=== PATIENT | female | born 1960 | race Caucasian/White ===

== ENCOUNTER → 2016-10-09 17:10 | Outpatient (CLI) | payer MEDICARE | END | disposition home or self-care (01) | LOC: D.MAMMO 09-18 10:30 | DX: R92.8 Other abnormal and inconclusive findings on diagnostic imaging of breast (principal) ==

== ENCOUNTER 2017-01-20 20:47 | Inpatient (IN) | payer MEDICARE ==
[~2017-01-20] VITALS: Ht 170.2 cm; Wt 83.0 kg
[2017-01-20 22:00] LABS: ALBUMIN 2.6 g/dL (3.4-5.0); ALKALINE PHOSPHATASE 115 U/L (46-116); ALT (SGPT) 61 U/L (10-68); BILIRUBIN - TOTAL 0.25 mg/dL (0.2-1.3); CALC OSMOLALITY 249 mosm/kg (275-300); CALCIUM 7.6 mg/dL (8.5-10.1); CHLORIDE - SERUM 87 mmol/L (98-107); CREATININE - SERUM 0.7 mg/dL (0.6-1.3); GLUCOSE 97 mg/dL (74-106); POTASSIUM - SERUM 4.9 mmol/L (3.5-5.1); PROTEIN - SERUM 5.7 g/dL (6.4-8.2); SODIUM 126 mmol/L (136-145); TROPONIN-I 0.022 ng/mL (0.000-0.060); UREA NITROGEN 5 mg/dL (7-18); eGFR NON AFRICAN AMERICAN > 90 mL/min (90-120)
[2017-01-20 22:01] LABS: CARBON DIOXIDE 42.8 mmol/L (21.0-32.0)
[2017-01-20 22:17] LABS: BASOPHILS 0.2 % (0-2); EOSINOPHILS 1.9 % (0-7); HEMATOCRIT 47.8 % (36.0-48.0); HEMOGLOBIN 15.8 g/dL (12-16); IMMATURE GRANULOCYTES 0.4 % (0-5); MCH 30.6 pg (26.0-34.0); MCHC 33.1 g/dL (31.0-37.0); MCV 92.6 fL (80.0-100.0); MEAN PLATELET VOLUME 9.9 fL (7.4-10.4); MONOCYTES 9.2 % (2-11); NEUTROPHILS 68.3 % (40-80); PLATELET COUNT 303 10x3/uL (130-400); RBC 5.16 10x6/uL (4.00-5.40); WBC 9.4 10x3/uL (4.8-10.8)
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
--- NOTE | 2017-01-21 00:05 | NUR ---
PT REFUSING TO WEAR BIPAP AT THIS TIME
[2017-01-21] MEDS ORDERED: SINGULAIR10 MG PO (00:16)
[2017-01-21] MEDS ORDERED: VALIUM10 MG PO (00:17)
[2017-01-21] MEDS ORDERED: HYDROCODONE-APA1 TAB PO (00:17)
[2017-01-21] MEDS ORDERED: SPIRIVA18 MCG INH (00:17)
[2017-01-21] MEDS ORDERED: PEPCID AC20 MG PO (00:17)
[2017-01-21] MEDS ORDERED: BUTALB-APAP-CA1 EACH PO (00:18)
[2017-01-21] MEDS ORDERED: PROAIR HFA8.5 GM INH (00:20)
[2017-01-21] MEDS ORDERED: PROVENTIL HFA6.7 GM INH (00:21)
[2017-01-21] MEDS ORDERED: LASIX40 MG PO (00:21)
[2017-01-21 00:30] VITALS: BP 116/64; BMI 29.6
--- NOTE | 2017-01-21 01:04 | NUR ---
CALL LIGHT IN REACH, WILL CONTINUE WITH PLAN OF CARE.
--- NOTE | 2017-01-21 01:36 | NUR ---
MORPHINE 2 MG GIVEN FOR C/O PAIN TO LOWER EXTREMITIES, RATES PAIN AT AN 8 ON PAIN SCALE.
[2017-01-21 04:00] VITALS: BP 123/79
--- NOTE | 2017-01-21 04:00 | NUR ---
URINE SPECIMINE COLLECTED AND TAKEN TO LAB.
[2017-01-21 04:07] LABS: APPEARANCE CLEAR (CLEAR); COLOR YELLOW (YELLOW)
[2017-01-21 04:08] LABS: BILIRUBIN NEGATIVE (NEGATIVE); GLUCOSE NEGATIVE (NEGATIVE); KETONE NEGATIVE (NEGATIVE); LEUKOCYTE ESTERASE NEGATIVE (NEGATIVE); NITRITE NEGATIVE (NEGATIVE); PROTEIN TRACE mg/dL (NEGATIVE); SPECIFIC GRAVITY 1.005 (1.005-1.020); UROBILINOGEN NORMAL (NORMAL)
--- NOTE | 2017-01-21 05:24 | NUR ---
morphine 2 mg given for c/o pain to legs.
--- NOTE | 2017-01-21 07:29 | NUR ---
OFF FLOOR OUTSIDE SMOKING, PT HAS TAKEN HER TELEMETRY OFF. WILL DISCUSS WITH PT WHEN SHE COMES BACK ON THE FLOOR IN REGARDS TO LETTING SOMEONE KNOW WHEN SHE LEAVES THE FLOOR AND IMPORTANCE OF NOT TAKING TELEMETRY OFF.
[2017-01-21 08:00] VITALS: BP 126/78
--- NOTE | 2017-01-21 09:53 | NUR ---
PT C/O PAIN IN BILAT LEGS AND HIPS 03/10. ADMINISTERED 2MG MORPHINE IV. PT VOICED CONCERNS IN REGARDS TO GETTING HER REGULAR HOME MEDS. ADVISED I WOULD CK INTO THIS FOR HER. NO OTHER CONCERNS VOICED AT THIS TIME. WILL CONTINUE TO MONITOR.
--- NOTE | 2017-01-21 10:00 | NUR ---
PT OFF FLOOR WENT OUTSIDE TO SMOKE AND GET FRESH AIR.
--- NOTE | 2017-01-21 10:20 | NUR ---
PT BACK ON FLOOR FROM SMOKING. DENIES ANY NEEDS AT THIS TIME. CALL LIGHT IN REACH. O2 ON 2L NC
--- NOTE | 2017-01-21 10:31 | NUR ---
RESP UL ON . SHARI NEEDS AT THIS TIME. CALL LIGHT IN REACH. WILL CONT. PLAN OF CARE.
[2017-01-21 12:00] VITALS: BP 110/66
[2017-01-21 13:34] VITALS: Ht 170.2 cm; Wt 83.0 kg
--- NOTE | 2017-01-21 15:00 | NUR ---
PT SITTING UP IN BED AND STATES THAT SHE DOES NOT LIKE WEARING THE NICOTINE PATCH AND WILL PROBABLY BE TAKING IT OFF BEFORE TO LONG. I ADVISED PT THAT SHE DID NOT NEED TO TAKE PATCH OFF. PT VERBALIZED SHE DID NOT CARE.
[2017-01-21 16:00] VITALS: BP 103/63
[2017-01-21 20:00] VITALS: BP 127/79
--- NOTE | 2017-01-21 23:57 | NUR ---
NURSE ROUNDS 20:30 - PT SITTING IN CHAIR, CRYING, INCONSOLABLE, R/T HER MORPHINE BEING D/C'D. DAY SHIFT NURSE, INDIGO, DID REPORT THAT PTS MORPHINE HAS BEEN DISCONTINUED, AND WAS NOT AWARE THAT IT HAD BEEN RESTARTED. I EXPLAINED TO PATIENT THAT IT HAD BEEN RESTARTED SOME HOURS LATER, AND THAT I WAS IN THE PROCESS OF PULLING HS MEDS, AND WOULD BRING HER PAIN MEDICATION WHEN I CAME BACK TO PASS HER 21:00 MEDICATIONS. PT REMAINED INCONSOLABLE, STILL CRYING, AND STATED THAT SHE WAS GOING TO THE [facility] BECAUSE SHE "JUST HAD TO GET OUT" OF HER ROOM FOR A WHILE. I ASKED PT AT THIS TIME IF SHE HAD A NICOTINE PATCH ON, IN WHICH SHE RESPONDED "YES". I ASKED PT TO ALWAYS NOTIFY ME WHEN SHE WAS LEAVING THE FLOOR, AND SHE AGREED TO DO SO. I ALSO ASKED PT IF SHE WAS GOING OUT TO SMOKE, IN WHICH PATIENT DID NOT ANSWER ME, EVEN WHEN I ASKED HER A SECOND TIME. PT THEN JUST WALKED OFF. PT CALLED WITHIN 30 MINUTES OF RETURNING BACK TO HER ROOM, STILL CRYING, STILL INCONSOLABLE, STILL REQUESTING HER MORPHINE. I EXPLAINED TO PT THAT AFTER I WAS FINISHED WITH A PATIENT I WAS ALREADY IN WITH, THAT I WOULD BE IN THERE NEXT. WHEN I WAS FINALLY ABLE TO GO IN WITH PATIENT, SHE WAS STILL CRYING, BUT SOON STOPPED SOON SHE RECEIVED HER IVP MORPHINE. PT DENIED ANY OTHER NEEDS AT THIS TIME. CONTINUE TO MONITOR CLOSELY.
[2017-01-22] VITALS: BP 113/69
[2017-01-22 04:00] VITALS: BP 143/89
--- NOTE | 2017-01-22 04:34 | NUR ---
PT UP, ASKING TO GO OUTSIDE AND ALSO TO VENDING MACHINE. PT STATES HER NICOTINE PATCH FELL OFF IN THE SHOWER, BUT WAS UNABLE TO FIND IT. PT VERBALLY STATES THAT SHE UNDERSTANDS SHE CANNOT SMOKE WHILE WEARING THE NICOTINE PATCH, AND STATES THAT SHE DOES NOT WANT ANOTHER PATCH PLACED. I ALSO EXPLAINED TO PT THAT SHE CANNOT BE LEAVING OUR UNIT AFTER RECEIVING HER OPIOID PAIN MEDICATIONS OR ANYTHING THAT MAY CAUSE SEDATION. PT AGREES TO THIS ALSO. PT IS ALERT AND ORIENTED AT THIS TIME. CONTINUE TO MONITOR CLOSELY.
[2017-01-22 05:31] LABS: BASOPHILS 0 % (0-2); EOSINOPHILS 0 % (0-7); HEMATOCRIT 51.8 % (36.0-48.0); HEMOGLOBIN 16.9 g/dL (12-16); IMMATURE GRANULOCYTES 0.5 % (0-5); LYMPHOCYTES 14.2 % (15-50); MCH 29.9 pg (26.0-34.0); MCHC 32.6 g/dL (31.0-37.0); MCV 91.5 fL (80.0-100.0); MEAN PLATELET VOLUME 9.8 fL (7.4-10.4); MONOCYTES 3.9 % (2-11); NEUTROPHILS 81.4 % (40-80); PLATELET COUNT 320 10x3/uL (130-400); RBC 5.66 10x6/uL (4.00-5.40); RDW 14.6 % (11.5-14.5); WBC 7.9 10x3/uL (4.8-10.8)
[2017-01-22 05:55] LABS: CALCIUM 8.3 mg/dL (8.5-10.1); CHLORIDE - SERUM 87 mmol/L (98-107); CREATININE - SERUM 0.7 mg/dL (0.6-1.3); GLUCOSE 140 mg/dL (74-106); SODIUM 130 mmol/L (136-145); eGFR NON AFRICAN AMERICAN > 90 mL/min (90-120)
[2017-01-22 05:57] LABS: CALC OSMOLALITY 261 mosm/kg (275-300); POTASSIUM - SERUM 3.9 mmol/L (3.5-5.1); UREA NITROGEN 9 mg/dL (7-18)
--- NOTE | 2017-01-22 06:14 | NUR ---
PT BEGAN TO LEAVE VERY SOON AFTER RECEIVING HER PRN NORCO, STATING SHE WAS ALRIGHT TO WALK OUTSIDE. I REMINDED HER THAT SHE WAS NOT TO LEAVE THE UNIT WHILE RECEIVING OPIOID MEDICATION OR ANY OTHER SEDATIVES. PT BECAME AGITATED, STATING THAT SHE HAS SMOKED 45 YEARS AND THAT IT IS HARD FOR HER NOT TO BE ABLE TO GO AND SMOKE. I TOLD HER THAT I UNDERSTAND, HOWEVER, IF SHE IS IN SO MUCH PAIN THAT SHE REQUIRES PAIN MEDICATIONS EVERY 2 HOURS, SHE SHOULD NOT BE AMBULATING WITHOUT ASSISTANCE ESPECIALLY TO GO SMOKE. PT RETURNED TO HER ROOM UPSET. CONTINUE TO MONITOR CLOSELY.
--- NOTE | 2017-01-22 07:40 | NUR ---
SITTING UP ON SIDE OF BED WEEPING STATES SHE IS IN TERRIBLE PAIN 9/10 NECK AND LEGS. ADMINISTERED 2MG MORPHINE IV. ALERT AND ORIENTED X4. DENIES ANY OTHER NEEDS AT THIS TIME. CALL LIGHT IN REACH. WILL CONTINUE TO MONITOR.
[2017-01-22 08:00] VITALS: BP 125/88
--- NOTE | 2017-01-22 08:30 | NUR ---
ATTEMPTED TO PUT ON SCD'S FOR PT. PT REFUSED TO WEAR SCD. PT STATES "I DO NOT SEE ANY NEED FOR ME TO WEAR THEM BESIDES THEY WILL ONLY MAKE MY LEGS HURT MORE." I ATTEMPTED TO INFORM PT THE IMPORTANCE OF WEARING THEM BUT SHE REFUSED TO ACCEPT THE INFORMATION.
--- NOTE | 2017-01-22 11:24 | NUR ---
C/O PAIN IN NECK AND LEGS 9/10 THROBBING. ADMINISTERED NORCO 10MG. PT STATES " I NEED TO SEE DRKristopher BECAUSE WHAT THEY ARE GIVING ME FOR PAIN CONTROL IS NOT WORKING, THIS NORCO IS NOT DOING ANYTHING JONG BEEN ON IT FOR TOO LONG" ADVISED PT I WOULD LET ONE OF THE DOCTORS KNOW WHEN THEY ARRIVED ON THE FLOOR. PT VERBALIZED UNDERSTANDING
[2017-01-22 12:00] VITALS: BP 122/73
--- NOTE | 2017-01-22 15:15 | NUR ---
RESITED IV TO LEFT FOREARM 22G X2 ATTEMPTS. DRESSING INTACT AND SALINE LOCKED WITH SWAB CAP. RIGHT HAND IV GOT PULLED OUT PT DOES NOT KNOW HOW CATH TIP INTACT. MORPHINE 2MG IV ADMINISTERED PER PT REQUEST OF PAIN 03/10 NECK AND LEGS
--- NOTE | 2017-01-22 15:38 | NUR ---
SATISFACTION HILARYER CAME TO ME SECONDARY TO THERE BEING NO MANAGEMENT ON THE FLOOR. STATED THE PATIENT IS WANTING TO LEAVE AMA. SAID SECURITY STOPPED HER FROM SMOKING OUTSIDE. SHE IS SAYING THE PAIN MEDICATION IS NOT DOING ANYTHING FOR HER, SHE SAID THAT THE STAFF IS DOING NOTHING FOR HER, AND SHE WANTS TO LEAVE. SPOKE WITH INDIGO, REHAB NURSE FILLING IN ON THE FLOOR. SHE CONFIRMED THIS. AMA FORM PRINTED. SPOKE WITH DR GRACE, HE STATED TO LET HER LEAVE.
--- NOTE | 2017-01-22 15:44 | NUR ---
PT STATED EARLIER THAT SHE WANTED TO LEAVE AMA. ADVISED LILIBETH JAMES AND CASE MANAGEMENT. TOOK AMA PAPERS INTO PT AND SHE STATED "YES I WILL SIGN IT, SO I CAN GET THE HELL OUT OF HERE" AND THREW IT ON BEDSIDE TABLE.
[2017-01-22 16:00] VITALS: BP 114/70
[2017-01-22 19:00] VITALS: BP 125/70
[2017-01-23] VITALS: BP 132/85
--- NOTE | 2017-01-23 01:30 | NUR ---
NURSE ROUNDS 21:40 01/22/17 - PT LYING IN BED, CALLING FOR HER PRN MORPHINE, TEARFUL, STATING HER BACK AND LEGS ARE HURTING. PT IS ALSO ASKING FOR HER NICOTINE PATCH THAT SHE REFUSED EARLIER. I EXPLAINED TO PT THAT I WAS AWARE OF HER STATING THAT SHE WAS GOING TO LEAVE AMA DURING DAY SHIFT, AND THAT I WAS NOT GOING TO ADMINISTER HER NARCOTIC PAIN MEDICATION AND VALIUM IF SHE WAS GOING TO CONTINUE TO LEAVE THE FLOOR OR GET UPSET AGAIN AND LEAVE AMA. PT STATES THAT HER BOYFRIEND THAT WAS HERE VISITING CAUSED HER INCREASED ANXIETY AND AGITATION, WHICH WAS WHY SHE WAS SAYING SHE WAS LEAVING AMA. I ALSO EXPLAINED TO PT THAT I WAS NOT GOING TO GIVE HER A NICOTINE PATCH IF SHE WAS GOING TO CONTINUE TO TRY AND SNEAK AROUND SMOKE. PT STATED THAT SHE WAS GOING TO REMAIN IN HER ROOM, ON THE UNIT, AND NOT GO OUTSIDE ANY MORE. I ASKED PT WHAT HER PLANS WERE FOR PAIN CONTROL ONCE SHE IS D/C HOME, SINCE SHE IS ALWAYS TEARFUL WHEN REQUESTING PRN PAIN MEDICATION. PT STATES THAT SHE DOES NOT KNOW, AND BECAME INCREASING AGITATED STATING THAT SHE WILL MOST LIKELY BE D/C TOMORROW. I HAVE ENCOURAGED PT TO KEEP HER FOLLOW UP APPT WITH HER PRIMARY CARE PHYSICIAN AND EXPLAIN TO DR. MON[place] THAT SHE IS HAVING S/S OF PERIPHERAL NEUROPATHY, AND TO ASK FOR OPTIONS FOR TX. I EXPLAINED THAT THERE ARE SEVERAL TYPES OF TX THAT CAN HELP WITH HER CHRONIC LEG PAIN. PT DENIED ANY OTHER NEEDS AT THIS TIME. CONTINUE TO MONITOR CLOSELY.
[2017-01-23 04:00] VITALS: BP 141/89
--- NOTE | 2017-01-23 04:47 | NUR ---
PT AWAKE, ALERT, ORIENTED, HAS BEEN STAYING IN HER ROOM WITH EXCEPTION OF ONE TIME GOING TO VENDING MACHINE LOCATED CLOSE TO UNIT, HAS NOT GONE OUTSIDE. PT DENIES ANY NEEDS, CONTINUE TO MONITOR CLOSELY.
[2017-01-23 05:36] LABS: BASOPHILS 0.1 % (0-2); EOSINOPHILS 0.1 % (0-7); HEMATOCRIT 50.2 % (36.0-48.0); HEMOGLOBIN 16.3 g/dL (12-16); IMMATURE GRANULOCYTES 0.4 % (0-5); LYMPHOCYTES 17.1 % (15-50); MCH 29.7 pg (26.0-34.0); MCHC 32.5 g/dL (31.0-37.0); MCV 91.4 fL (80.0-100.0); MEAN PLATELET VOLUME 9.4 fL (7.4-10.4); NEUTROPHILS 74.3 % (40-80); PLATELET COUNT 303 10x3/uL (130-400); RBC 5.49 10x6/uL (4.00-5.40); RDW 14.7 % (11.5-14.5)
[2017-01-23 05:55] LABS: CALC OSMOLALITY 263 mosm/kg (275-300); CALCIUM 8.3 mg/dL (8.5-10.1); CARBON DIOXIDE 39.1 mmol/L (21.0-32.0); CHLORIDE - SERUM 88 mmol/L (98-107); CREATININE - SERUM 0.6 mg/dL (0.6-1.3); GLUCOSE 108 mg/dL (74-106); POTASSIUM - SERUM 3.8 mmol/L (3.5-5.1); SODIUM 132 mmol/L (136-145); UREA NITROGEN 8 mg/dL (7-18); eGFR NON AFRICAN AMERICAN > 90 mL/min (90-120)
--- NOTE | 2017-01-23 07:18 | NUR ---
PT SITTING UP IN BED WATCHING TV DENIES NEEDS WILL CONT TO MONITOR
[2017-01-23 08:06] LABS: MAGNESIUM - SERUM 1.5 mg/dL (1.8-2.4); PHOSPHOROUS 4.3 mg/dL (2.5-4.9)
[2017-01-23 08:24] VITALS: BP 121/79
[2017-01-23 12:12] VITALS: BP 127/83
--- NOTE | 2017-01-23 13:54 | CN ---
PATIENT NAME:DARBY AGUDELO MEDICAL RECORD: [id number] : 62 LOCATION:D. D.2105 ADMIT DATE: 01/21/17 ACCOUNT: [id number] CONSULTING PHYSICIAN: FLAKITO KO MD REFERRING PHYSICIAN: KARISSA GRACE MD DATE OF CONSULTATION: 01/21/2017 Cardiology Consultation DIAGNOSES: 1. Lower extremity edema. 2. Shortness of breath. 3. Chronic obstructive pulmonary disease. 4. Hypertension. HISTORY OF PRESENT ILLNESS: Mrs. Agudelo presents with increasing lower extremity edema. She was seen in our office with the same. She had an echocardiogram revealing normal ejection fraction, no significant valvular disease, but there was mitral regurgitation, it was moderate, mild pulmonary hypertension. She was put on Lasix. She continues to have lower extremity edema despite the Lasix. PHYSICAL EXAMINATION: GENERAL APPEARANCE: Well-nourished, well-developed, appears stated age. Level of distress, comfortable. PSYCHIATRIC: Mental status, alert, normal affect. Orientation, oriented to time, place and person. EYES: Lids and conjunctiva, noninjected. No discharge, no pallor. ENT: Lips, teeth, gums, normal dentition. Oropharynx, no cyanosis, no pallor. NECK: Carotid arteries, bilateral normal upstroke, no bruits, no thrills. JUGULAR VEINS: No jugular venous pressure or distention. CERVICAL LYMPH NODES: Nontender, nonenlarged. THYROID: Not enlarged. Nontender. No nodules. LUNGS: Respiratory effort, unlabored. CHEST: Normal curvature. No thoracic deformity. No chest wall tenderness. Percussion, resonant. Auscultation, clear. No wheezes, no rales, no rhonchi. CARDIOVASCULAR: Precordial exam, nondisplaced. No heaves or pericardial thrills. Rate and rhythm, regular. Heart sounds, normal S1, normal S2. No S3, no gallop, no rub. Systolic murmur, not heard. Diastolic murmur, not heard. EXTREMITIES: Lower extremities with +2 to +3 pitting edema. ABDOMEN: Soft, nondistended. Normal aorta. No bruit. Nontender. No masses. Liver, nontender, no hepatomegaly. Spleen, nontender, no splenomegaly. MUSCULOSKELETAL: No joint tenderness. No joint swelling. No erythema. NEUROLOGICAL: Normal gait, normal strength, normal tone. SKIN: Warm and dry. OVERALL IMPRESSION: Lower extremity edema, but normal echocardiogram. This is not congestive heart failure secondary to the pulmonary hypertension and chronic obstructive pulmonary disease. No other cardiac workup or treatment is necessary. TRANSINT:[id number] Voice Confirmation ID: [id number] DOCUMENT ID: [id number] CONSULT REPORT [id number] DARBY AGUDELO, FLAKITO MONTANA at 1354 CC: [id number] DICTATION DATE: 01/21/17 1241 PRIVATE CLIENT ADVISOR: 01/21/17 1659 ADM IN [facility] [address] [place] [address]
[2017-01-23 16:27] VITALS: BP 110/62
--- NOTE | 2017-01-23 18:03 | NUR ---
PT SITTING UP IN BED AT BEDSIDE DENIES ANY NEEDS
[2017-01-23 19:00] VITALS: BP 139/82
--- NOTE | 2017-01-23 19:48 | NUR ---
PT SEEN LEAVING HER ROOM AND WALKING TOWARDS EXIT, DID NOT SAY WHERE SHE WAS GOING.
[2017-01-24] VITALS: BP 136/91
--- NOTE | 2017-01-24 05:19 | NUR ---
PT AWAKE, ALERT, ORIENTED, REQUESTING PRN PAIN MEDICATION Q 2 HOURS. PT STATES SHE WILL BE D/C TODAY, DENIES ANY OTHER NEEDS, IS IN NO ACUTE DISTRESS. CONTINUE TO MONITOR CLOSELY.
[2017-01-24 05:20] LABS: BASOPHILS 0.1 % (0-2); EOSINOPHILS 0.1 % (0-7); HEMATOCRIT 46.3 % (36.0-48.0); HEMOGLOBIN 14.8 g/dL (12-16); IMMATURE GRANULOCYTES 0.3 % (0-5); LYMPHOCYTES 18.2 % (15-50); MCH 29.1 pg (26.0-34.0); MCV 91.1 fL (80.0-100.0); MEAN PLATELET VOLUME 9.4 fL (7.4-10.4); MONOCYTES 8.2 % (2-11); NEUTROPHILS 73.1 % (40-80); PLATELET COUNT 273 10x3/uL (130-400); RBC 5.08 10x6/uL (4.00-5.40); RDW 14.8 % (11.5-14.5); WBC 9.5 10x3/uL (4.8-10.8)
[2017-01-24 05:40] LABS: CALC OSMOLALITY 267 mosm/kg (275-300); CHLORIDE - SERUM 91 mmol/L (98-107); CREATININE - SERUM 0.6 mg/dL (0.6-1.3); GLUCOSE 129 mg/dL (74-106); MAGNESIUM - SERUM 1.5 mg/dL (1.8-2.4); PHOSPHOROUS 3.9 mg/dL (2.5-4.9); POTASSIUM - SERUM 3.9 mmol/L (3.5-5.1); SODIUM 134 mmol/L (136-145); UREA NITROGEN 8 mg/dL (7-18); eGFR NON AFRICAN AMERICAN > 90 mL/min (90-120)
[2017-01-24 05:42] LABS: CARBON DIOXIDE 41.3 mmol/L (21.0-32.0)
--- NOTE | 2017-01-24 06:00 | NUR ---
IMMEDIATELY AFTER GIVING PT HER PRN NORCO, SHE LEFT THE UNIT AND WENT AND SMOKED. PT STATED THAT SHE DID TAKE HER NICOTINE PATCH OFF. I HAVE TOLD PT MULTIPLE TIMES THAT WHILE SHE IS RECEIVING NARCOTICS, THAT SHE IS NOT ALLOWED TO LEAVE THE UNIT, ESPECIALLY TO GO SMOKE. I HAVE TOLD PT MULTIPLE TIMES THAT WHILE SHE IS WEARING A NICOTINE PATCH THAT SHE IS NOT ALLOWED TO GO SMOKE. PT REFUSES TO COMPLY. PT JUST RETURNED BACK TO HER ROOM.
--- NOTE | 2017-01-24 07:20 | NUR ---
PT SITTING UP ON SOB WITH BREATHING TX DENIES ANY NEEDS AT THIS TIME WILL CONT TO MONITOR
[2017-01-24 12:35] VITALS: BP 133/80
[2017-01-24] MEDS ORDERED: PREDNISONE10 MG PO (13:25)
[2017-01-24] MEDS ORDERED: NICODERM C1 PATCH .1 TRANSDERM (13:25)
--- NOTE | 2017-01-24 14:52 | NUR ---
WENT OVER DC PAPERWORK WITH PT PT VERBALIZES UNDERSTANDING. PT HAS SCRIPT FOR NORCO INHER POSSESSION. DC PIV WITH CATH TIP INTACT. DC TELE AND RETURNED TO SUPERVISOR SHUTTLE FITTING. PT WAITING FOR HER RIDE TO GET HERE THEN WILL DC HOME
--- NOTE | 2017-01-24 15:34 | NUR ---
PT RIDE HERE, REFUSED WHEELCHAIR AND DC TO HOME
--- NOTE | 2017-01-24 16:17 | NUR ---
Patient Name: DARBY AGUDELO Admission Status: ER Accout number: [id number] Admission Date: 01-21-2017 : 1960 Admission Diagnosis:LOCALIZED EDEMA Attending: LESLY Current LOS: 3 Anticipated DC Date: 01-24-2017 Planned Disposition: Home Primary Insurance: MEDICARE A & B LATE ENTRY: Discharge Planning Comments: * Is the patient Alert and Oriented? Yes 0 * How many steps to enter\exit or inside your home? 5 0 * PCP DR MONTANA 0 * Pharmacy [facility] 0 * Preadmission Environment Home with Family 0 * ADLs Independent 0 * Equipment Nebulizer Oxygen 0 * Other Equipment HOME AND PORTABLE OXYGEN [facility] PATIENT - MEDICAL EQUIPMENT PROVIDER 0 * List name and contact numbers for known caregivers / representatives who currently or will assist patient after discharge: ANNA GREGG, 0 * Community resources currently utilized None 0 * Please name any agencies selected above. NONE 0 * Additional services required to return to the preadmission environment? No 0 * Can the patient safely return to the preadmission environment? Yes 0 * Has this patient been hospitalized within the prior 30 days at any hospital? No 0 CM MET WITH PT IN ROOM TO DISCUSS DISCHARGE PLANNING AND NEEDS. PT REPORTS LIVING AT HOME INDEPENDENTLY IN A ROOM THAT SHE RENTS IN THE HOME OF HER LANDLORD. PT HAS OXYGEN AND NEBULIZER FROM [facility] PATIENT. PT HAS NO OUTSIDE SERVICES ASSISTING IN THE HOME. CM DISCUSSED AVAILABILITY OF HOME HEALTH, REHAB SERVICES AND MEDICAL EQUIPMENT. PT DENIES DISCHARGE NEEDS, REPORTS HER LANDLORD WILL PICK HER UP FOR DISCHARGE HOME. IMPORTANT MESSAGE FROM MEDICARE PROVIDED AND EXPLAINED. Laboratory Scientist: Vaughn Paulino
== END 2017-01-24 15:35 | disposition home or self-care (01) | DRG 191 ==
LOC: D.ER 20:47 → D.M2 23:18 → OBSVTIME 23:18 → D.M2 01-21 11:27
PROVIDERS: Emergency Medicine; Physician Assistant; ADMIT Family Medicine
DX: J44.1 Chronic obstructive pulmonary disease with (acute) exacerbation (principal); F17.203 Nicotine dependence unspecified, with withdrawal; E87.1 Hypo-osmolality and hyponatremia; I27.2 Other secondary pulmonary hypertension; G89.29 Other chronic pain; M54.9 Dorsalgia, unspecified; I10 Essential (primary) hypertension; F41.9 Anxiety disorder, unspecified; K58.9 Irritable bowel syndrome, unspecified; I34.0 Nonrheumatic mitral (valve) insufficiency

== ENCOUNTER 2017-02-22 12:39 | Inpatient (IN) | payer MEDICARE ==
[2017-02-22] VITALS (8 sets, daily range): BP systolic 123–143; BP diastolic 76–105; BMI 28.6
[~2017-02-22] VITALS: Ht 170.2 cm; Wt 79.1 kg
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
[~2017-02-22 12:39] MED LIST: BUTALB-APAP-CA1 EACH PO; HYDROCODONE-APA1 TAB PO; LASIX40 MG PO; NICODERM C1 PATCH .1 TRANSDERM; PEPCID AC20 MG PO; PREDNISONE10 MG PO; PROAIR HFA8.5 GM INH; PROVENTIL HFA6.7 GM INH; SINGULAIR10 MG PO; SPIRIVA18 MCG INH; VALIUM10 MG PO
[2017-02-22 13:32] LABS: BASOPHILS 0.1 % (0-2); EOSINOPHILS 0.1 % (0-7); HEMOGLOBIN 16.1 g/dL (12-16); IMMATURE GRANULOCYTES 0.7 % (0-5); LYMPHOCYTES 12.1 % (15-50); MCV 85.7 fL (80.0-100.0); MEAN PLATELET VOLUME 9.4 fL (7.4-10.4); MONOCYTES 10.8 % (2-11); NEUTROPHILS 76.2 % (40-80); PLATELET COUNT 303 10x3/uL (130-400); RBC 5.37 10x6/uL (4.00-5.40); RDW 15.7 % (11.5-14.5); WBC 13.8 10x3/uL (4.8-10.8)
[2017-02-22 14:30] LABS: CARBON DIOXIDE 30.8 mmol/L (21.0-32.0); CREATININE - SERUM 1.4 mg/dL (0.6-1.3)
[2017-02-22 14:31] LABS: ALBUMIN 3.2 g/dL (3.4-5.0); BILIRUBIN - TOTAL 0.5 mg/dL (0.2-1.3); CALCIUM 8.5 mg/dL (8.5-10.1); PROTEIN - SERUM 6.3 g/dL (6.4-8.2)
[2017-02-22 14:36] LABS: ANION GAP 10.3 mmol/L (8-16); POTASSIUM - SERUM 6.1 mmol/L (3.5-5.1)
[2017-02-22 16:14] LABS: APPEARANCE CLEAR (CLEAR); COLOR YELLOW (YELLOW)
[2017-02-22 16:15] LABS: BILIRUBIN NEGATIVE (NEGATIVE); GLUCOSE NEGATIVE (NEGATIVE); KETONE NEGATIVE (NEGATIVE); LEUKOCYTE ESTERASE NEGATIVE (NEGATIVE); NITRITE NEGATIVE (NEGATIVE); PROTEIN TRACE mg/dL (NEGATIVE); UROBILINOGEN NORMAL (NORMAL)
[2017-02-22 16:29] LABS: UDS - AMPHET NEGATIVE QUAL (NEGATIVE); UDS - BARB POSITIVE QUAL (NEGATIVE); UDS - BENZO POSITIVE QUAL (NEGATIVE); UDS - COCAINE NEGATIVE QUAL (NEGATIVE); UDS - METH NEGATIVE QUAL (NEGATIVE); UDS - OPIATE POSITIVE QUAL (NEGATIVE); UDS - PCP NEGATIVE QUAL (NEGATIVE); UDS - THC NEGATIVE QUAL (NEGATIVE)
--- NOTE | 2017-02-22 17:24 | NUR ---
RECIEVED REPORT ON PT FROM CATHERINE. WAITING TO RECIEVE PT TO UNIT.
--- NOTE | 2017-02-22 17:26 | NUR ---
PT ARRIVED TO UNIT AT THIS TIME VIA BED. WAS ABLE TO WALK TO TRANSFER FROM ER BED TO ICU BED. PT ALERT AND ORIENTED. NO ACUTE DISTRESS NOTED. TRANSFER ASSIST FROM ER STAFF AND ICU STAFF. WILL CONTINUE PLAN OF CARE.
--- NOTE | 2017-02-22 17:49 | NUR ---
CALLED DR BURLESON TO NOTIFY OF CONSULT, ALSO NOTIFIED DR BURLESON THAT PT HAS OTHER ORDERS FOR DR BAIN. DR BURLESON STATED NO NEW ORDERS BUT TO CALL DR FLOREZ TO SEE WHAT HE WANTS TO DO ABOUT THE POTASSIUM AND SODIUM. DR FLOREZ PAGED AT THIS TIME.
--- NOTE | 2017-02-22 17:58 | NUR ---
DR FLOREZ HERE, ORDERS PLACED.
--- NOTE | 2017-02-22 19:00 | NUR ---
REPORT RECEIVED AND ASSESSMENT COMPLETED. SEE FLOWSHEET FOR FULL DETAILS. PT ADMITTED FROM ER WITH SODIUM OF 107, AND POTASSIUM OF 6.1. NOW ON NS AT 75 TO WITH SCHEDULED ABX. WILL CALL MD WITH BMP RESULTS AND ADJUST CARE ACCORDINGLY. VSS. WILL MONITOR
[2017-02-22 19:35] LABS: CREATINE KINASE 467 UL (21-215)
[2017-02-22 19:45] LABS: CKMB 18.1 U/L (0.0-3.6)
[2017-02-22 20:33] LABS: CALCIUM 8.4 mg/dL (8.5-10.1); CARBON DIOXIDE 33.3 mmol/L (21.0-32.0); POTASSIUM - SERUM 5.4 mmol/L (3.5-5.1)
[2017-02-22 20:38] LABS: ANION GAP 8.1 mmol/L (8-16)
--- NOTE | 2017-02-22 21:00 | NUR ---
2100 MEDS GIVEN. LAB IN ROOM FOR DRAW. WILL UPDATE MD AND ADJUST POC DIRECTED.
--- NOTE | 2017-02-22 23:00 | NUR ---
REASSESSMENT COMPLETED SEE FLOWSHEET FOR FULL DETAILS. NOTIFIED OF LAB RESULTS. PT NOW ON D5W @ 30 REDRAW WILL BE AT 0100. LABS NOW Q4.
[2017-02-23] VITALS (25 sets, daily range): BP systolic 92–119; BP diastolic 57–81; BMI 28.5
--- NOTE | 2017-02-23 01:00 | NUR ---
PT NOW SLEEPING IN ROOM. NO MORE C/O PAIN. STILL VERY CONFUSED WHEN AWAKE. LABS TO BE DRAWN SHORTLY. WILL ASSESS RESULTS.
[2017-02-23 01:32] LABS: CALCIUM 8.1 mg/dL (8.5-10.1); CARBON DIOXIDE 37.1 mmol/L (21.0-32.0); GLUCOSE 87 mg/dL (74-106); MAGNESIUM - SERUM 1.2 mg/dL (1.8-2.4)
[2017-02-23 01:36] LABS: CREATININE - SERUM 0.7 mg/dL (0.6-1.3); UREA NITROGEN 12 mg/dL (7-18); eGFR NON AFRICAN AMERICAN > 90 mL/min (90-120)
[2017-02-23 01:37] LABS: CALC OSMOLALITY 238 mosm/kg (275-300); CHLORIDE - SERUM 81 mmol/L (98-107); SODIUM 119 mmol/L (136-145)
[2017-02-23 01:38] LABS: POTASSIUM - SERUM 4.8 mmol/L (3.5-5.1)
--- NOTE | 2017-02-23 03:00 | NUR ---
REASSESSMENT COMPLETED. SEE FLOWSHEET FOR FULL DETAILS. VSS AT THIS TIME. PT HAS BECOME MORE CONFUSED FROM PREVIOUS ASSESSMENT AND APPEARS VERY LETHARGIC. WILL CONTINUE TO MONITOR CLOSELY.
--- NOTE | 2017-02-23 05:00 | NUR ---
AM LABS IN. NO CHANGE FROM PREVIOUS NA LEVEL. WILL CONTINUE TO MONITOR
[2017-02-23 05:17] LABS: BASOPHILS 0.1 % (0-2); EOSINOPHILS 0.3 % (0-7); HEMATOCRIT 45.8 % (36.0-48.0); HEMOGLOBIN 15.5 g/dL (12-16); IMMATURE GRANULOCYTES 0.9 % (0-5); LYMPHOCYTES 12.4 % (15-50); MCH 29.1 pg (26.0-34.0); MCHC 33.8 g/dL (31.0-37.0); MCV 86.1 fL (80.0-100.0); MEAN PLATELET VOLUME 8.9 fL (7.4-10.4); MONOCYTES 10.6 % (2-11); NEUTROPHILS 75.7 % (40-80); RBC 5.32 10x6/uL (4.00-5.40); RDW 15.5 % (11.5-14.5)
[2017-02-23 05:18] LABS: PLATELET COUNT 215 10x3/uL (130-400); WBC 9.2 10x3/uL (4.8-10.8)
[2017-02-23 05:28] LABS: ALBUMIN 2.6 g/dL (3.4-5.0); ALKALINE PHOSPHATASE 103 U/L (46-116); ALT (SGPT) 48 U/L (10-68); CALCIUM 8.1 mg/dL (8.5-10.1); CARBON DIOXIDE 36.5 mmol/L (21.0-32.0); CREATININE - SERUM 0.7 mg/dL (0.6-1.3); GLUCOSE 99 mg/dL (74-106); PROTEIN - SERUM 5.4 g/dL (6.4-8.2); UREA NITROGEN 10 mg/dL (7-18); eGFR NON AFRICAN AMERICAN > 90 mL/min (90-120)
[2017-02-23 05:31] LABS: CALC OSMOLALITY 238 mosm/kg (275-300); POTASSIUM - SERUM 3.8 mmol/L (3.5-5.1); SODIUM 119 mmol/L (136-145)
[2017-02-23 05:32] LABS: CHLORIDE - SERUM 80 mmol/L (98-107)
--- NOTE | 2017-02-23 08:01 | NUR ---
LYING IN BED RESTING AT THIS TIME. NO ACUTE DISTRESS NOTED. RESPIRATIONS STEADY AND UNLABORED. PT AWAKENS EASILY WHEN SPOKEN TO. DENIES ANY NEEDS. WILL CONTINUE PLAN FO CARE.
--- NOTE | 2017-02-23 09:05 | NUR ---
FAMILY AT BEDSIDE. UPDATE GIVEN. NO ACUTE DISTRESS NOTED. WILL CONTINUE PLAN OF CARE.
[2017-02-23 09:22] LABS: CALC OSMOLALITY 244 mosm/kg (275-300); CALCIUM 7.8 mg/dL (8.5-10.1); CARBON DIOXIDE 38.3 mmol/L (21.0-32.0); CREATININE - SERUM 0.7 mg/dL (0.6-1.3); GLUCOSE 97 mg/dL (74-106); POTASSIUM - SERUM 3.8 mmol/L (3.5-5.1); SODIUM 122 mmol/L (136-145); UREA NITROGEN 9 mg/dL (7-18); eGFR NON AFRICAN AMERICAN > 90 mL/min (90-120)
[2017-02-23 09:23] LABS: CHLORIDE - SERUM 83 mmol/L (98-107)
--- NOTE | 2017-02-23 10:11 | NUR ---
SPOKE WITH DR FLOREZ TO NOTIFY OF LAB RESULTS PER REQUEST. ORDERS RECIEVED TO INCREASE D5W TO 125ML/HOUR AND RECHECK MAGNESIUM LEVEL IN 8 HOURS. ORDERS PLACED.
--- NOTE | 2017-02-23 10:32 | NUR ---
DR PIMENTEL HERE, ORDERS PLACED.
--- NOTE | 2017-02-23 12:00 | NUR ---
RESTING IN BED AT THIS TIME. AWAKENS EASILY WHEN SPOKEN TO THEN GOES BACK TO SLEEP. NO ACUTE DISTRESS NOTED. VITAL SIGNS STABLE. WILL CONTINUE PLAN OF CARE.
[2017-02-23 13:03] LABS: CALCIUM 7.8 mg/dL (8.5-10.1); CARBON DIOXIDE 39.7 mmol/L (21.0-32.0); CREATININE - SERUM 0.8 mg/dL (0.6-1.3); GLUCOSE 134 mg/dL (74-106); POTASSIUM - SERUM 3.7 mmol/L (3.5-5.1); UREA NITROGEN 9 mg/dL (7-18); eGFR NON AFRICAN AMERICAN 79 mL/min (90-120)
[2017-02-23 13:14] LABS: CALC OSMOLALITY 242 mosm/kg (275-300); CHLORIDE - SERUM 82 mmol/L (98-107); SODIUM 120 mmol/L (136-145)
--- NOTE | 2017-02-23 14:01 | NUR ---
CALLED DR FLOREZ TO NOTIFY OF LAB VALUES INCLUDING CRITICAL LABS. NO NEW ORDERS.
--- NOTE | 2017-02-23 16:02 | NUR ---
TOTAL BED CHANGE PROVIDED AT THIS TIME. PT DENIES ANY NEEDS. OLD LINENS NOTED WRINKLY. PT TURNS SELF INDEPENDENTLY. NO ACUTE DISTRESS NOTED. WILL CONTINUE PLAN OF CARE.
[2017-02-23 16:56] LABS: CALCIUM 7.7 mg/dL (8.5-10.1); CREATININE - SERUM 0.7 mg/dL (0.6-1.3); GLUCOSE 138 mg/dL (74-106); POTASSIUM - SERUM 3.8 mmol/L (3.5-5.1); UREA NITROGEN 8 mg/dL (7-18); eGFR NON AFRICAN AMERICAN > 90 mL/min (90-120)
[2017-02-23 17:02] LABS: CALC OSMOLALITY 236 mosm/kg (275-300); CARBON DIOXIDE 40.2 mmol/L (21.0-32.0); CHLORIDE - SERUM 81 mmol/L (98-107); MAGNESIUM - SERUM 1.6 mg/dL (1.8-2.4); SODIUM 117 mmol/L (136-145)
--- NOTE | 2017-02-23 17:33 | NUR ---
CRITICAL LABS RECIEVED ON PT OF 117 CRITICALLY LOW SODIUM, 81 CRITICALLY LOW CHLORIDE, AND 40.2 CRITICALLY HIGH CARBON DIOXIDE. NEW ORDERS RECIEVED TO CHANGE FLUIDS FROM 125 D5W TO 1/2 NS WITH 10MEQ K. ALSO NOTIFIED OF MG LEVEL OF 1.6, ORDER RECIEVED TO ADMIN 1G MG RIDERS X [address]. [address] ORDERS.
--- NOTE | 2017-02-23 18:01 | NUR ---
ORDER PLACED FOR 1/2 NS WITH 10MEQ K AT 100ML/HOUR PER DR FLOREZ TELEPHONE ORDER. NOTED PHARMACY IS NOT HERE AT HOSPITAL AT THIS TIME. CALLED TELE MARKETING EXECUTIVE TO NOTIFY OF ORDER AND THAT PT NEEDS MED. TELE MARKETING EXECUTIVE STATED SHE WOULD BE HERE IN A LITTLE WHILE TO ADDRESS ISSUE. PT RESTING IN BED AT THIS TIME. NO ACUTE DISTRESS. RESPIRATIONS STEADY AND UNLABORED. PT STAES NEEDS. WILL CONTINUE PLAN OF CARE.
--- NOTE | 2017-02-23 18:25 | NUR ---
UP IN BED EATING SUPPER AT THIS TIME. NO ACUTE DISTRESS NOTED. PT DENIES ANY NEEDS. WILL CONTINUE PLAN OF CARE.
--- NOTE | 2017-02-23 18:45 | NUR ---
CALLED DR FLOREZ TO NOTIFY THAT WAS UNABLE TO GET 1/2 NS WITH 10MEQ K BECAUSE PHARMACY IS UNAVALIABLE; HAD GONE HOME AND PRINT ROOM WORKER HAD BEEN UNABLE TO CONTACT THEM. CALLED DR FLOREZ TO NOTIFY. NEW ORDER RECIEVED TO HAVE 1/2 NS AT 100ML/HOUR WITHOUT THE 10MEQ K. ORDERS PLACED. PRINT ROOM WORKER NOTIFIED TO PULL MED FOR PT FROM [facility]. STATED SHE WOULD BE BY SHORTLY. PT AWAKE IN BED SPEAKING WITH VISITOR. NO ACUTE DISTRESS NOTED. WILL CONTINUE PLAN OF CARE.
--- NOTE | 2017-02-23 19:05 | NUR ---
Received patient resting in bed with eyes open and family at bedside, assessment completed per flowsheet. Patient AO x3, slight disorientation to time. Eyes PERRLA @ 3mm with brisk response, sclera is white. S1/S2 noted NSR with T wave elevation and HR 86, rhythmic and regular. Breathing is even and unlabored on 3L via NC with O2 sat 96%, slight expiratory wheeze noted bilateral upper and mid with diminished lower. Abdomen is flat and soft with bowel sounds active x4, non-tender to palpation. Grimes secured in place with clear yellow urine noted. Full ROM all extremities with weakness noted, all pulses palpable with generalized swelling noted bilateral lower. 20g PIV R hand with 1/2 NS @ 100ml/hr / 1g Magnesium @ 100ml infusing. Patient denies pain or other needs at this time, all VSS and will continue to monitor.
--- NOTE | 2017-02-23 21:00 | NUR ---
No visitors at this time, all HS meds given without difficulty. Lab called to draw BMP for electrolyte levels, Cory in lab to notify flow match sofa cutter. No further needs at this time, all VSS and will continue to monitor.
--- NOTE | 2017-02-23 21:15 | NUR ---
Lab called to draw scheduled BMP, sock lining stitcher notified to collect sample.
--- NOTE | 2017-02-23 22:15 | NUR ---
Lab sample uncollected, Dylan JAMES drawn and hand carried to lab for STAT resulting. Will notify Dr Quinones of results when available.
--- NOTE | 2017-02-23 22:30 | NUR ---
Dr Pacheco called to check lab results, results not yet available from Lab. Per Dr Pacheco, if Na+ level decreased then lower 1/2 NS to 50ml/hr and if increased > 122 then change fluids to D5W at 100ml/hr. Will adjust per orders when results received.
[2017-02-23 23:04] LABS: CALCIUM 7.4 mg/dL (8.5-10.1); CARBON DIOXIDE 38.8 mmol/L (21.0-32.0); CREATININE - SERUM 0.7 mg/dL (0.6-1.3); GLUCOSE 98 mg/dL (74-106); UREA NITROGEN 7 mg/dL (7-18); eGFR NON AFRICAN AMERICAN > 90 mL/min (90-120)
[2017-02-23 23:05] LABS: CALC OSMOLALITY 234 mosm/kg (275-300); SODIUM 117 mmol/L (136-145)
--- NOTE | 2017-02-23 23:05 | NUR ---
Reassessment completed per flowsheet, patient resting in bed with eyes open watching TV. Patient AO x3, slight disorientation to time. S1/S2 noted NSR with T wave elevation with HR 83, rhythmic and regular. Breathing is even and unlabored on 3L via NC, O2 sat 97%. All pulses palpable with cap refill < 3 sec, skin is warm/dry to touch. Patient states pain 2/10 in back and hip, repositioned for comfort with patient stating relief. No further needs at this time, all VSS and will continue to monitor.
[2017-02-23 23:06] LABS: CHLORIDE - SERUM 81 mmol/L (98-107)
[2017-02-24] VITALS (27 sets, daily range): BP systolic 97–122; BP diastolic 40–96
--- NOTE | 2017-02-24 01:00 | NUR ---
Patient resting in bed with eyes closed, breathing is is slightly shallow and unlabored. BMP collected by lab, will adjust per orders as necessary. No further needs at this time, all VSS and will continue to monitor.
[2017-02-24 01:24] LABS: CALCIUM 7.7 mg/dL (8.5-10.1); CARBON DIOXIDE 39.4 mmol/L (21.0-32.0); CREATININE - SERUM 0.6 mg/dL (0.6-1.3); GLUCOSE 100 mg/dL (74-106); POTASSIUM - SERUM 3.8 mmol/L (3.5-5.1); UREA NITROGEN 6 mg/dL (7-18); eGFR NON AFRICAN AMERICAN > 90 mL/min (90-120)
[2017-02-24 01:26] LABS: CALC OSMOLALITY 234 mosm/kg (275-300); SODIUM 117 mmol/L (136-145)
[2017-02-24 01:27] LABS: CHLORIDE - SERUM 81 mmol/L (98-107)
--- NOTE | 2017-02-24 03:00 | NUR ---
Reassessment completed per flowsheet, patient resting in bed with eyes closed. S1/S2 noted NSR with T wave elevation and HR 78, rhythmic and regular. Breathing is even and unlabored on 3L via NC with O2 sat 96%, expiratory wheeze noted bilateral upper and mid with diminished lower. All pulses palpable with cap refill < 3 sec, skin is warm/dry to touch with generalized swelling noted bilateral lower extremity. Patient denies pain or other needs at this time, all VSS and will continue to monitor.
--- NOTE | 2017-02-24 05:00 | NUR ---
AM labs collected without difficulty, patient resting in bed with eyes closed. Repositioned for comfort, no further needs at this time. All VSS and will continue to monitor.
[2017-02-24 05:22] LABS: BASOPHILS 0.1 % (0-2); EOSINOPHILS 0.5 % (0-7); HEMATOCRIT 44.4 % (36.0-48.0); HEMOGLOBIN 14.8 g/dL (12-16); IMMATURE GRANULOCYTES 0.7 % (0-5); MCH 29.2 pg (26.0-34.0); MCHC 33.3 g/dL (31.0-37.0); MCV 87.6 fL (80.0-100.0); MEAN PLATELET VOLUME 8.6 fL (7.4-10.4); NEUTROPHILS 78.7 % (40-80); PLATELET COUNT 173 10x3/uL (130-400); RBC 5.07 10x6/uL (4.00-5.40); RDW 15.7 % (11.5-14.5); WBC 9.9 10x3/uL (4.8-10.8)
[2017-02-24 05:42] LABS: ALBUMIN 2.3 g/dL (3.4-5.0); ALKALINE PHOSPHATASE 93 U/L (46-116); ALT (SGPT) 49 U/L (10-68); CALCIUM 7.7 mg/dL (8.5-10.1); CARBON DIOXIDE 38.1 mmol/L (21.0-32.0); CREATININE - SERUM 0.6 mg/dL (0.6-1.3); GLUCOSE 138 mg/dL (74-106); MAGNESIUM - SERUM 1.6 mg/dL (1.8-2.4); POTASSIUM - SERUM 3.7 mmol/L (3.5-5.1); eGFR NON AFRICAN AMERICAN > 90 mL/min (90-120)
[2017-02-24 05:44] LABS: CALC OSMOLALITY 238 mosm/kg (275-300); CHLORIDE - SERUM 80 mmol/L (98-107); SODIUM 119 mmol/L (136-145); UREA NITROGEN 4 mg/dL (7-18)
--- NOTE | 2017-02-24 06:30 | NUR ---
Spoke to Dr Quinones via telephone, orders received to change fluids to NS @ 50ml/hr. Read back and confirmed, NS @ 50ml/hr initiated.
--- NOTE | 2017-02-24 07:30 | NUR ---
UP IN BED AWAKE AT THIS TIME. NO ACUTE DISTRESS NOTED. PT DENIES ANY NEEDS. WILL CONTINUE PLAN OF CARE.
[2017-02-24 08:58] LABS: CALCIUM 7.7 mg/dL (8.5-10.1); CREATININE - SERUM 0.6 mg/dL (0.6-1.3); GLUCOSE 164 mg/dL (74-106); UREA NITROGEN 4 mg/dL (7-18); eGFR NON AFRICAN AMERICAN > 90 mL/min (90-120)
[2017-02-24 09:13] LABS: CALC OSMOLALITY 238 mosm/kg (275-300); CHLORIDE - SERUM 82 mmol/L (98-107); SODIUM 118 mmol/L (136-145)
--- NOTE | 2017-02-24 09:31 | NUR ---
FAMILY AT BEDSIDE. UPDATE GIVEN. NO ACUTE DISTRESS NOTED. WILL CONTINUE PLAN OF CARE.
--- NOTE | 2017-02-24 09:43 | NUR ---
NOTED WHILE PERFORMING PT CARE TO PT, PT AND PTS SISTER WERE HAVING A CONVERSATION AND PTS SISTER STATED "I NEED A XANAX SHAKE" PT THEN RESPONDED TO SISTER "I CAN HOOK YOU UP." PT AND SISTER SHORTLY CHANGED CONVERSATION. THIS INFORMATION REPORTED TO DR FLOREZ AND DR PIMENTEL. WILL CONTINUE PLAN OF CARE.
--- NOTE | 2017-02-24 09:45 | NUR ---
RECIEVED CALL FROM RENAL SUSTAINABILITY PURCHASING AGENT AT THIS TIME. ORDERS RECIEVED TO INCREASE NS RATE FROM 50ML/HR TO 75ML/HR. NO ACUTE DISTRESS NOTED. WILL CONTINUE PLAN OF CARE.
--- NOTE | 2017-02-24 11:01 | NUR ---
DR FLOREZ HERE, ORDERS PLACED.
--- NOTE | 2017-02-24 12:46 | NUR ---
CALLED DR MAYORGA TO NOTIFY OF CONSULT. DR MAYORGA STATED HE HAD ALREADY BEEN NOTIFIED BY DR PIMENTEL OF CONSULT. NO NEW ORDERS. WILL CONTINUE PLAN OF CARE.
[2017-02-24 13:05] LABS: CALCIUM 8.2 mg/dL (8.5-10.1); CARBON DIOXIDE 38.7 mmol/L (21.0-32.0); CREATININE - SERUM 0.6 mg/dL (0.6-1.3); GLUCOSE 132 mg/dL (74-106); POTASSIUM - SERUM 3.9 mmol/L (3.5-5.1); UREA NITROGEN 4 mg/dL (7-18); eGFR NON AFRICAN AMERICAN > 90 mL/min (90-120)
[2017-02-24 13:06] LABS: CALC OSMOLALITY 236 mosm/kg (275-300); SODIUM 118 mmol/L (136-145)
[2017-02-24 13:07] LABS: CHLORIDE - SERUM 82 mmol/L (98-107)
--- NOTE | 2017-02-24 13:13 | NUR ---
BMP RESULTS IN, CRITICAL SODIUM LEVEL OF 118 AND CRITICAL CHLORIDE LEVEL OF 82. THESE ARE UNCHANGED LEVEL FROM PREVIOUS BMP LEVELS. DR FLOREZ PAGED AT THIS TIME TO NOTIFY. WAITING FOR CALLBACK.
--- NOTE | 2017-02-24 17:00 | NUR ---
BED BATH PROVIDED TO PT AT THIS TIME. TOTAL LINEN CHANGE PROVIDED. PT UP IN CHAIR BESIDE BED. DENIES ANY NEEDS. NO ACUTE DISTRESS NOTED. WILL CONTINUE PLAN OF CARE.
[2017-02-24 17:06] LABS: CALC OSMOLALITY 242 mosm/kg (275-300); CARBON DIOXIDE 37.3 mmol/L (21.0-32.0); CREATININE - SERUM 0.6 mg/dL (0.6-1.3); GLUCOSE 139 mg/dL (74-106); POTASSIUM - SERUM 3.9 mmol/L (3.5-5.1); SODIUM 121 mmol/L (136-145); UREA NITROGEN 4 mg/dL (7-18); eGFR NON AFRICAN AMERICAN > 90 mL/min (90-120)
[2017-02-24 17:07] LABS: CHLORIDE - SERUM 84 mmol/L (98-107)
--- NOTE | 2017-02-24 17:13 | NUR ---
NOTIFIED DR FLOREZ OF LAB RESULTS INCLUDING CRITICAL LAB. NEW ORDER TO CHANGE NS RATE TO 75ML/HOUR. ORDER PLACED. PT UP IN CHAIR BEDSIDE BED. DENIES ANY NEEDS. WILL CONTINUE PLAN OF CARE.
--- NOTE | 2017-02-24 17:48 | NUR ---
ASSISTED PT BACK TO BED FROM CHAIR VIA STAND BY ASSIST. NO ACUTE DISTRESS NOTED. WILL CONTINUE PLAN OF CARE.
--- NOTE | 2017-02-24 19:05 | NUR ---
Received patient resting in bed with eyes open watching TV, assessment completed per flowsheet. Patient AO x3, slight disorientation to time but answers questions appropriately. Eyes PERRLA @ 4mm with brisk response, sclera is reddened. S1/S2 noted NSR with T wave elevation and HR 90, rhythmic and regular. Breathing is even and unlabored on 3L via NC with O2 sat 94%, lung sounds clear bilateral upper and mid with diminished lower. Abdomen is flat and soft with bowel sounds active x4, non-tender. Grimes secured in place, clear yellow urine noted. Full ROM all extremities with weakness noted and generalized swelling BLE, all pulses palpable with cap refill < 3 sec. 20g PIV R hand, dressing CDI with NS @ 75ml/hr infusing. SCD in use, petechiae noted BLE. Repositioned for comfort, no further needs at this time. All VSS and will continue to monitor.
--- NOTE | 2017-02-24 21:00 | NUR ---
Patient resting in bed with eyes closed. HS meds given without difficulty and blood sample collected by Lab. Patient denies pain or other needs at this time, all VSS and will continue to monitor.
[2017-02-24 21:37] LABS: CALC OSMOLALITY 249 mosm/kg (275-300); CALCIUM 7.9 mg/dL (8.5-10.1); CARBON DIOXIDE 38.1 mmol/L (21.0-32.0); CHLORIDE - SERUM 86 mmol/L (98-107); CREATININE - SERUM 0.6 mg/dL (0.6-1.3); GLUCOSE 152 mg/dL (74-106); POTASSIUM - SERUM 4.2 mmol/L (3.5-5.1); SODIUM 124 mmol/L (136-145); UREA NITROGEN 4 mg/dL (7-18); eGFR NON AFRICAN AMERICAN > 90 mL/min (90-120)
--- NOTE | 2017-02-24 21:45 | NUR ---
Called Dr Quinones and notified of lab results, new orders received. NS decreased to 30ml/hr, and lab draw to be rechecked at 0400. Orders read back and confirmed.
--- NOTE | 2017-02-24 23:05 | NUR ---
Reassessment completed per flowsheet, patient resting in bed with eyes closed. Patient is AO x3, slight disorientation to time but answers appropriately. S1/S2 noted with T wave elevation and HR 88, rhythmic and regular. Breathing is even and unlabored on 3L via NC with O2 sat 97%. All pulses palpable with cap refill < 3 sec, skin warm/dry to touch. Patient denies pain or other needs at this time, all VSS and will continue to monitor.
[2017-02-25] VITALS (24 sets, daily range): BP systolic 103–132; BP diastolic 68–90
--- NOTE | 2017-02-25 01:00 | NUR ---
Patient resting in bed with eyes closed, full bed/bath and linen change performed. Patient denies pain or other needs at this time, all VSS and will continue to monitor.
--- NOTE | 2017-02-25 03:00 | NUR ---
Reassessment completed per flowsheet, patient resting in bed with eyes closed. Patient AO x3, slight disorientation to time but answers appropriately. S1/S2 noted NSR with T wave elevation on telemetry with HR 81, rhythmic and regular. Breathing is even and unlabored on 3L via NC, O2 sat 95%. Full ROM all extremities with all pulses palpable, cap refill < 3 sec. Patient denies pain or other needs at this time, all VSS and will continue to monitor.
[2017-02-25 04:14] LABS: BASOPHILS 0 % (0-2); EOSINOPHILS 1.1 % (0-7); HEMATOCRIT 46.4 % (36.0-48.0); HEMOGLOBIN 15.3 g/dL (12-16); IMMATURE GRANULOCYTES 0.8 % (0-5); LYMPHOCYTES 13.3 % (15-50); MCH 29.4 pg (26.0-34.0); MCV 89.1 fL (80.0-100.0); MEAN PLATELET VOLUME 8.3 fL (7.4-10.4); MONOCYTES 9.5 % (2-11); NEUTROPHILS 75.3 % (40-80); PLATELET COUNT 185 10x3/uL (130-400); RBC 5.21 10x6/uL (4.00-5.40); RDW 16.1 % (11.5-14.5); WBC 8.5 10x3/uL (4.8-10.8)
[2017-02-25 04:30] LABS: ALBUMIN 2.5 g/dL (3.4-5.0); ALKALINE PHOSPHATASE 102 U/L (46-116); ALT (SGPT) 44 U/L (10-68); CALC OSMOLALITY 255 mosm/kg (275-300); CALCIUM 8.1 mg/dL (8.5-10.1); CARBON DIOXIDE 37.2 mmol/L (21.0-32.0); CHLORIDE - SERUM 88 mmol/L (98-107); CREATININE - SERUM 0.6 mg/dL (0.6-1.3); GLUCOSE 128 mg/dL (74-106); MAGNESIUM - SERUM 1.9 mg/dL (1.8-2.4); POTASSIUM - SERUM 4.1 mmol/L (3.5-5.1); PROTEIN - SERUM 5.3 g/dL (6.4-8.2); SODIUM 128 mmol/L (136-145); UREA NITROGEN 4 mg/dL (7-18); eGFR NON AFRICAN AMERICAN > 90 mL/min (90-120)
--- NOTE | 2017-02-25 05:00 | NUR ---
AM Labs collected without difficulty, patient resting in bed with eyes open watching TV. Patient repositioned for comfort, denies pain or other needs at this time. All VSS and will continue to monitor.
--- NOTE | 2017-02-25 06:35 | NUR ---
Spoke to Dr Quinones via telephone and informed of most recent lab results, new orders received. Fluids changed to D5W @ 75ml/hr, read back and confirmed.
--- NOTE | 2017-02-25 07:18 | NUR ---
DR. FLOREZ HERE IN TO SEE PATIENT AT THIS TIME.
--- NOTE | 2017-02-25 07:42 | NUR ---
SHIFT ASSSESSMENT COMPLETE. PATIENT READY FOR BREAKFAST, AND IS ABLE TO MOVE SELF IN BED. CALL LIGHT WITHIN REACH, AND BED IN LOW POSITION.
--- NOTE | 2017-02-25 09:54 | NUR ---
Nutrition follow-up: Diet: Low sodium with po intake 75-100% of meals Labs reviewed +BM Wt: 183# D5W infusing @ 75 ml/hr RDN following.
--- NOTE | 2017-02-25 10:07 | NUR ---
PATIENT IS GROOMING HAIR, AND DIGGING AROUND IN PURSE. PATIENT DENIES ANY NEEDS AT THIS TIME. H2O GIVEN. CALL LIGHT WITHIN REACH, AND BED IN LOW POSITION.
--- NOTE | 2017-02-25 10:58 | NUR ---
DR. LUDWIG IN ROOM TO SEE PATIENT.
--- NOTE | 2017-02-25 11:36 | NUR ---
* Is the patient Alert and Oriented? Yes 0 * How many steps to enter\\exit or inside your home? 3 0 * PCP Dr. Rivera 0 * Pharmacy [facility] in [place] 0 * Preadmission Environment Home with Family 0 * ADLs Independent 0 * Equipment Nebulizer Oxygen 0 * List name and contact numbers for known caregivers / representatives who currently or will assist patient after discharge: Significant Other - Emeka Stern [phone] 0 * Additional services required to return to the preadmission environment? No 0 * Can the patient safely return to the preadmission environment? Yes 0 * Has this patient been hospitalized within the prior 30 days at any hospital? Yes 0 Grand Total: 0 Patient Name: DARBY AGUDELO Admission Status: ER Accout number: [id number] Admission Date: 02-22-2017 : 1960 Admission Diagnosis: Attending: CHRISTIE PIMENTEL Current LOS: 3 Planned Disposition: Home with Home Health Primary Insurance: MEDICARE A & B Discharge Planning Comments: Case Management with patient to assess dc plans/needs. Patient alert & oriented x 3. She states she lives with her S/O, Emeka Stern. She reports she is independent with all ADL's & AIDL's. She has a nebulizer & Home O2 which is set on 2L. Discussed home health services at discharge. She states they have 2 dogs & is concerned having home health "will be a big hassle". Explained benefits of HH - she has agreed to consider referral. CM will follow & assist as needed. Sales Representative Sales Manager: Shantelle Reeves
--- NOTE | 2017-02-25 11:40 | NUR ---
LAB IN ROOM AT THIS TIME. AT 1135 CASE MANAGEMENT IN TO SEE PATIENT.
[2017-02-25 12:13] LABS: CALC OSMOLALITY 261 mosm/kg (275-300); CALCIUM 8.1 mg/dL (8.5-10.1); CARBON DIOXIDE 38.9 mmol/L (21.0-32.0); CHLORIDE - SERUM 91 mmol/L (98-107); CREATININE - SERUM 0.5 mg/dL (0.6-1.3); GLUCOSE 128 mg/dL (74-106); POTASSIUM - SERUM 4.3 mmol/L (3.5-5.1); SODIUM 131 mmol/L (136-145); UREA NITROGEN 4 mg/dL (7-18); eGFR NON AFRICAN AMERICAN > 90 mL/min (90-120)
--- NOTE | 2017-02-25 13:58 | NUR ---
PATIENT UP TO CHAIR WITH MINIMAL ASSIST NEEDED. PATIENT DENIES ANY NEEDS, AND STATES SHE FEELS MUCH BETTER GETTING UP.
--- NOTE | 2017-02-25 13:59 | NUR ---
NA+ IS UP TO 131 PER LAB AT DONE AT 1140.
--- NOTE | 2017-02-25 15:20 | NUR ---
PATIENT BATHED SELF WHILE UP IN CHAIR. PATIENT WANTS TO RETURN TO BED, AND DOES SO WITH MINIMAL ASSIST. GAIT STEADY. MADDOX CARE COMPLETE.
--- NOTE | 2017-02-25 17:05 | NUR ---
PATIENT DENIES ANY NEEDS AT THIS TIME. EATING DINNER. CALL LIGHT WITHIN REACH, AND BED IN LOW POSITION.
--- NOTE | 2017-02-25 18:05 | NUR ---
PATIENT SIGNIFICANT OTHER AT BEDSIDE TALKING WITH PATIENT. CALL LIGHT WITHIN REACH, AND BED IN LOW POSITION.
--- NOTE | 2017-02-25 19:15 | NUR ---
REPORT RECIEVED. ASSESSMENT COMPLETED. PT ALERT AND ORIENTATED X4. PT IS ON 3L NC WITH EXPATORY-WHEEZES IN THE UPPER LOBES OF THE AND DIMINISHED SOUNDS IN THE LOWER LOBES. PT IS ON CM WITH A RATE OF 93 AND A RHYTHM OF NORMAL SINUS. PT BOWEL SOUNDS ARE HYPO X 4. PT HAS A RT HAND PIV WITH D5W @ 75. PT HAS BILAT LOWER LEGS PETECHIAE WITH PALP PULSES IN ALL EXTREMITIES. POSITIONED PT FOR COMFORT, WILL CONTINUE TO MONITOR.
--- NOTE | 2017-02-25 21:54 | NUR ---
REPORT RECEIVED FROM NATALI JAMES. PT WILL ARRIVE TO ROOM 2136. WILL CPOC
--- NOTE | 2017-02-25 22:11 | NUR ---
PT ARRIVED VIA WHEELCHAIR. C/O BACK PAIN AND STOMACH PAIN THAT IS SHARP THAT MOVES UP AND DOWN STOMACH. LAST BM WAS 02/24/17. IV TO RIGHT FOREARM. HOOKED PT UP TO FLUIDS. THE D5 ORDERED AT 75ML/HR. BUPREMEX GIVEN IN RIGHT FOREARM IV ORDERED PRN FOR PAIN. PT DENIES ANY OTHER NEEDS. NO S/S OF DISTRESS. BED LOW AND CALL LIGHT WITHIN REACH. WILL CPOC
[2017-02-26] VITALS: BP 123/89
--- NOTE | 2017-02-26 03:56 | NUR ---
PT C/O PAIN IN BACK AND STOMACH. ORDERED PAIN MED GIVEN. PT WANTS TO WAIT TO PUT ON TELEMETRY UNTIL AFTER SHE SHOWERS. SHE STATES SHE HAS NOT BATHED SINCE BEFORE HER ADMIT ON THE . PT VERBALIZED UNDERSTANDING WHEN TOLD TO CALL TO COVER HER IV BEFORE THE SHOWER. PT RESTING IN BED. DENIES ANY OTHER NEEDS. NO S/S OF DISTRESS. CALL LIGHT WITHIN REACH. WILL CPOC
[2017-02-26 04:00] VITALS: BP 130/86
[2017-02-26 05:35] LABS: BASOPHILS 0.1 % (0-2); EOSINOPHILS 1.5 % (0-7); HEMATOCRIT 47.7 % (36.0-48.0); HEMOGLOBIN 15.5 g/dL (12-16); IMMATURE GRANULOCYTES 0.8 % (0-5); LYMPHOCYTES 15.4 % (15-50); MCHC 32.5 g/dL (31.0-37.0); MCV 89.3 fL (80.0-100.0); MEAN PLATELET VOLUME 8.4 fL (7.4-10.4); MONOCYTES 9.6 % (2-11); NEUTROPHILS 72.6 % (40-80); PLATELET COUNT 175 10x3/uL (130-400); RBC 5.34 10x6/uL (4.00-5.40); RDW 16.5 % (11.5-14.5); WBC 8.8 10x3/uL (4.8-10.8)
[2017-02-26 06:09] LABS: ALBUMIN 2.6 g/dL (3.4-5.0); ALKALINE PHOSPHATASE 105 U/L (46-116); ALT (SGPT) 42 U/L (10-68); CALC OSMOLALITY 263 mosm/kg (275-300); CALCIUM 8.7 mg/dL (8.5-10.1); CARBON DIOXIDE 36.8 mmol/L (21.0-32.0); CHLORIDE - SERUM 91 mmol/L (98-107); CREATININE - SERUM 0.6 mg/dL (0.6-1.3); GLUCOSE 138 mg/dL (74-106); MAGNESIUM - SERUM 1.6 mg/dL (1.8-2.4); PHOSPHOROUS 3.6 mg/dL (2.5-4.9); POTASSIUM - SERUM 4.3 mmol/L (3.5-5.1); PROTEIN - SERUM 5.5 g/dL (6.4-8.2); SODIUM 132 mmol/L (136-145); UREA NITROGEN 5 mg/dL (7-18); eGFR NON AFRICAN AMERICAN > 90 mL/min (90-120)
--- NOTE | 2017-02-26 07:00 | NUR ---
RECEIVED REPORT. ASSUMED CARE OF PATIENT. RESTING IN BED WITH EYES OPEN. RESP EVEN AND UNLABORED. AT BEDSIDE. CALL LIGHT WITHIN REACH. COMPLAINS OF BACK PAIN, PATIENT RECENTLY MEDICATED FOR PAIN. NO DISTRESS.
[2017-02-26 08:00] VITALS: BP 130/84
[2017-02-26 08:11] VITALS: Ht 170.2 cm; Wt 79.1 kg
--- NOTE | 2017-02-26 10:10 | NUR ---
MEDICATED FOR PAIN AT THIS TIME. NO DISTRESS.
--- NOTE | 2017-02-26 10:23 | NUR ---
MADDOX CATHETER REMOVED AT THIS TIME PER . 1000 CC IN MADDOX BAG. PATIENT INSTRUCTED THE NEED TO VOID BY 1630. PATIENT VERBALIZED HER UNDERSTANDING. NO DISTRESS.
--- NOTE | 2017-02-26 11:30 | NUR ---
PATIENT HAS VOIDED. NO DISTRESS NOTED. NO URINARY RETENSION S/P REMOVAL OF MADDOX CATHETER.
[2017-02-26 12:00] VITALS: BP 132/95
[2017-02-26 16:00] VITALS: BP 135/92
--- NOTE | 2017-02-26 16:12 | NUR ---
MEDICATED FOR PAIN AT THIS TIME. NO DISTRESS.
--- NOTE | 2017-02-26 19:36 | NUR ---
PT RESTING IN BED. STATES SHE HAD A SHOWER TODAY AND IT MADE HER FEEL BETTER, BUT THAT SHE IS WANTING TO SLEEP TONIGHT BECAUSE SHE DID NOT GET ANY SLEEP LAST NIGHT. STATES THAT SHE ATE FOOD THAT HER BOYFRIEND BOUGHT HER AND LAID DOWN AND THINKS SHE MAY HAVE LAID DOWN TO SOON. STATES SHE FEELS A LITTLE DISCOMFORT. PT DENIES ANY NEEDS. NO S/S OF DISTRESS. WILL CPOC
[2017-02-26 20:00] VITALS: BP 130/87
--- NOTE | 2017-02-26 20:44 | NUR ---
PT C/O NAUSEA. NO EMESIS OUTPUT AT THIS TIME. PT STATES THAT SHE FEELS LIKE SHE MAY HAVE LAID DOWN TO SOON. HOLDING STOMACH AND MOANING IN PAIN. ZOFRAN GIVEN ORDERED. COOL WASHCLOTH PROVIDED. PT DENIES ANY OTHER NEEDS. NO S/S OF DISTRESS. WILL CPOC
[2017-02-27] VITALS: BP 122/85
[2017-02-27 04:00] VITALS: BP 137/99
[2017-02-27 05:54] LABS: BASOPHILS 0.2 % (0-2); EOSINOPHILS 2.2 % (0-7); HEMATOCRIT 49.7 % (36.0-48.0); HEMOGLOBIN 15.9 g/dL (12-16); IMMATURE GRANULOCYTES 0.8 % (0-5); LYMPHOCYTES 16.2 % (15-50); MCH 29.1 pg (26.0-34.0); MCV 90.9 fL (80.0-100.0); MEAN PLATELET VOLUME 8.8 fL (7.4-10.4); MONOCYTES 11.9 % (2-11); NEUTROPHILS 68.7 % (40-80); PLATELET COUNT 197 10x3/uL (130-400); RBC 5.47 10x6/uL (4.00-5.40); RDW 16.9 % (11.5-14.5); WBC 9.6 10x3/uL (4.8-10.8)
[2017-02-27 06:03] LABS: ALBUMIN 3.2 g/dL (3.4-5.0); ALKALINE PHOSPHATASE 130 U/L (46-116); ALT (SGPT) 51 U/L (10-68); CALC OSMOLALITY 266 mosm/kg (275-300); CHLORIDE - SERUM 91 mmol/L (98-107); CREATININE - SERUM 0.6 mg/dL (0.6-1.3); GLUCOSE 116 mg/dL (74-106); MAGNESIUM - SERUM 1.7 mg/dL (1.8-2.4); POTASSIUM - SERUM 4.9 mmol/L (3.5-5.1); PROTEIN - SERUM 5.9 g/dL (6.4-8.2); SODIUM 134 mmol/L (136-145); UREA NITROGEN 6 mg/dL (7-18); eGFR NON AFRICAN AMERICAN > 90 mL/min (90-120)
[2017-02-27 06:21] LABS: PHOSPHOROUS 4.8 mg/dL (2.5-4.9)
--- NOTE | 2017-02-27 07:30 | NUR ---
REPORT RECIEVED. RR EVEN AND UNLABORED. PT REPORTS CONSTANT PAIN. INTRODUCED SELF AND PLACED NAME ON WHITE BOARD. 2L O2 BEING DELIVERED TO PT VIA NC. FALL SOCKS PROVIDED, BED IN LOWEST POSTION, WILL CTM.
[2017-02-27 08:00] VITALS: BP 118/80
--- NOTE | 2017-02-27 08:00 | NUR ---
PT REPORTING NAUSEA, GAVE ZOFRAN PRN. PT REPORTS BEING HOT AND IS DIAPHORETIC. HR IS 90, SINUS RYTHYM. WILL CTM,
--- NOTE | 2017-02-27 09:30 | NUR ---
ASSISTED PT TO BATHROOM, X1 ASSIST. PT TOLERATED ACITIVITY WELL. PT WALKED WITHOUT O2 TO BATHROOM.
[2017-02-27 12:00] VITALS: BP 118/82
--- NOTE | 2017-02-27 13:00 | NUR ---
SPOKE TO ENMANUEL OLIVEIRA APN ABOUT FLUID ORDERS. EXPLAINED THAT THE NORMAL SALINE AT 30MLS/HR IS THE CORRECT ORDER AND TO D/C THE D5 FLUID.
--- NOTE | 2017-02-27 14:50 | NUR ---
PT FEELING NAUSEATED. GAVE ZOFRAN. RR EVEN AND UNLABORED, REPORTS NOT FEELING WELL. WILL CTM.
--- NOTE | 2017-02-27 14:50 | NUR ---
PT REFUSED TO WEAR SCD DURING THE DAY, STATES THAT SHE WILL WEAR THEM AT NIGHT. DENIES OTHER NEEDS AT THIS TIME, EXPLAINED RATIONALE FOR SCD. VERBALIZED UNDERSTANDING, PT UP TO BATHROOM FREQUENTLY.
[2017-02-27 16:00] VITALS: BP 131/93
--- NOTE | 2017-02-27 18:05 | NUR ---
PT FEELING NAUSEATED AGAIN. CANNOT GIVE ZOFRAN, STILL TOO SOON TO GIVE. FAMILY AT BEDSIDE. RR EVEN, BUT PT IS SHORT OF BREATH. WILL GIVE REPORT ON PT CONDITION FOR THE DAY.
--- NOTE | 2017-02-27 18:44 | NUR ---
PT REPORTS FEELING SHORT OF BREATH AND FEELING THOUGH SHE IS GOING TO "HAVE A SEIZURE". SIDE RAILS ARE PADDED, SUCTION IN THE ROOM. EXPLAINED TO PT THAT SHE CANNOT HAVE ZOFRAN AND PAIN MEDICATION YET. SCD PLACED ON PT WILL GIVE REPORT ON PT CONDTION FOR THE DAY.
--- NOTE | 2017-02-27 19:50 | NUR ---
PT C/O NAUSEA. DRY HEAVING. ZOFRAN GIVEN ORDERED. PT C/O PAIN IN STOMACH. BOWEL SOUNDS HYPOACTIVE/ABSENT. ABD FIRM AND DISTENDED. PT STATES PAIN IS 10/10. PT ASKES FOR PAIN MED WHEN IT IS TIME. PT DENIES ANY OTHER NEEDS. NO S/S OF DISTRESS. WILL CPOC
[2017-02-27 20:00] VITALS: BP 129/91
[2017-02-28] VITALS: BP 133/85
--- NOTE | 2017-02-28 02:40 | NUR ---
PT HAS INCREASED NAUSEA. RED/BROWN EMESIS. ZOFRAN GIVEN ORDERED. PT C/O VERY SEVERE PAIN IN ABD. ABD DISTENDED,FIRM AND RIGID. PT STILL HAS NOT HAD A BM. ROSE HANKS. PT STATES IT COMPARES TO THE PAIN AFTER A LAPROSCOPIC SURG, PAIN IN SHOULDER AND NECK. VERY INTENSE. NO OTHER NEEDS. NO S/S OF DISTESS. WILL CPOC
[2017-02-28 04:00] VITALS: BP 146/98
--- NOTE | 2017-02-28 04:50 | NUR ---
RIGHT WRIST IV INFLATRATION. REMOVED CATH INTACT. \ NEW IV TO RIGHT FOREARM. 22G. 2 ATTEMPTS. IV SALINE LOCKED. PT DENIES ANY NEEDS. STILL C/O NAUSEA AND PAIN. NO S/S OF DISTRESS. STATES SHE CAN NOT USE RESTROOM WHEN UP TO VOID. WILL CPOC
--- NOTE | 2017-02-28 06:43 | NUR ---
GAUTAM GAVE VERBAL ORDER TO CHANGE ZOFRAN TO EVERY 4 HOURS. PT STILL C/O NAUSEA AND PAIN. NO S/S OF DISTRESS. WILL CPOC
[2017-02-28 06:52] LABS: CALCIUM 8.8 mg/dL (8.5-10.1); CHLORIDE - SERUM 86 mmol/L (98-107); CREATININE - SERUM 0.6 mg/dL (0.6-1.3); GLUCOSE 108 mg/dL (74-106); MAGNESIUM - SERUM 1.9 mg/dL (1.8-2.4); PHOSPHOROUS 5.2 mg/dL (2.5-4.9); POTASSIUM - SERUM 5.3 mmol/L (3.5-5.1); PRO BNP 1010 pg/mL (0-125); SODIUM 127 mmol/L (136-145); eGFR NON AFRICAN AMERICAN > 90 mL/min (90-120)
[2017-02-28 06:54] LABS: CALC OSMOLALITY 254 mosm/kg (275-300); UREA NITROGEN 10 mg/dL (7-18)
--- NOTE | 2017-02-28 07:47 | NUR ---
AM ROUNDING- RECEIVED REPORT FROM NURSE RECRUITER NURSE ERMELINDA. PT IS CURRENTLY SITTING UP IN BED WITH EYES CLOSED RESTING. ON 02 AT 3L VIA NC. ON MONITOR SHOWING ST, HR 102. IV SEEN TO RIGHT FOREARM THAT IS CURRENTLY SALINE LOCKED. CALL LIGHT IS IN REACH. NO NEED AT CURRENT TIME. WILL CONTINUE TO MONITOR AND CONTINUE WITH PLAN OF CARE.
--- NOTE | 2017-02-28 11:56 | NUR ---
DID BLADDER SCAN ON PT ORDERED WITH 0ML OF URINE SHOWN ON BLADDER SCANNER. ELI WORRELL NP ON UNIT AND INFORMED HER OF THIS.
--- NOTE | 2017-02-28 13:55 | EC ---
PATIENT:DARBY AGUDELO DATE OF SERVICE: 02/22/17 SEX: F MEDICAL RECORD: [id number] DATE OF : [birth year] LOCATION:D.M2 D.213 AGE OF PATIENT: 56 ADMISSION DATE: 02/22/17 REFERRING PHYSICIAN: INTERPRETING PHYSICIAN: MADYSON KLINE MD ECHOCARDIOGRAM REPORT ECHO CHARGES 4 ECHO COMPLETE CLINICAL DIAGNOSIS: PULMONARY EDEMA ECHOCARDIOGRAPHIC MEASUREMENTS (adult normal given) AC root (d.<3.7cm) 3.7 cm LV Septum d (<1.2 cm> 1.5 cm Valve Excursion 1.7 cm LV Septum (systole) 1.8 cm Left Atria (s.<4.0cm> 3.9 cm LVPW d(<1.2cm) 1.6 cm RV (d.<2.3cm) 6.0 cm LVPW (sytole) 2.0 cm LV diastole(<5.6CM) 4.5 cm MV E-F(>70mm/sec) cm LV systole 2.5 cm LVOT Diameter 1.9 cm MV exc.(>10mm) 1.6 cm Est.ejection fraction (50-75%) % Pericardial Effusion N DOPPLER: LVIT cm/sec A 70.0 cm/sec E 72.0 cm/sec LA cm/sec RVSP 52 mmHg LVOT 115 cm/sec AOP1/2T m/s Asc. Ao 165 cm/sec RVOT 98 cm/sec RA cm/sec PA 121 cm/sec AV Gradient Peak 10.84mmHg AV Mean 5.74 mmHg AV Area 2.2 cm MV Gradient Peak 2.81 mmHg MV Mean 1.45 mmHg MV Area cm COMMENTS: Production Maintenance Technician: 2 SELVIN MAYA Forestry Adviser: 3 Dr. Hwang TAPE# PACS DATE OF SERVICE: 02/23/2017 Adequate 2D echo, color flow, spectral Doppler, and M-mode. LVH is present. LV internal dimension is normal. Wall motion is normal. EF is greater than 55%. Aortic valve is tricuspid. No stenosis by Doppler interrogation. The left atrium is normal at 3.9 cm. Mitral valve shows no prolapse. Trace MR. Right-sided chamber is grossly normal. Moderate TR. RV systolic pressure is estimated greater than or equal to complete 50 mmHg via the continuity equation. TRANSINT:[id number] Voice Confirmation ID: [id number] DOCUMENT ID: [id number] ECHOCARDIOGRAM REPORT [id number] DARBY AGUDELO 02/28/2017 Edited to correct date of service, dmm. MADYSON KLINE MD at 1355 CC: [id number] DICTATION DATE: 02/24/17906 PACKING AND SHIPPING CLERK: 02/24/17 0951 ADM IN [place] [id number] [place] [id number]
--- NOTE | 2017-02-28 14:11 | NUR ---
CALLED INTO PTS ROOM FOR PT TO INFORM ME THAT SHE WAS ABLE TO URINATE. I INFORMED PT THAT NEXT TIME SHE NEEDS TO GO TO LET STAFF KNOW SO WE CAN OBTAIN URINE SAMPLE. PT AGREES. WILL PLACE [place] HAT IN COMMODE. PT IS CURRENTLY REQUESTING CUP OF ICE. WILL GET ICE AND CONTINUE TO MONITOR.
--- NOTE | 2017-02-28 14:16 | NUR ---
Nutriton Follow Up: Chart reviewed. Noted pt with nausea and pain. Pt is eating 50% meal avg on an AHA diet. +BM 02/26/17. Labs reviewed. Meds noted including Lasix. Wt stable. Rec continue current diet. Will continue to send selective menus and honor food preferences. RD following.
--- NOTE | 2017-02-28 17:19 | NUR ---
PT IS CURRENTLY SITTING UP IN BED WITH EYES OPEN RESTING. GUEST AT BEDSIDE. PT IS GETTING UP TO USE BATHROOM. INFORMED PT THAT [place] HAT IS IN TOLIET AND IF URINATES PLEASE ALERT STAFF SO WE CAN GET SAMPLE ORDERED. NO FURTHER NEED AT THIS TIME. WILL CONTINUE TO MONITOR.
[2017-02-28 18:22] LABS: APPEARANCE CLOUDY (CLEAR); BACTERIA MODERATE /hpf (NONE SEEN); BILIRUBIN NEGATIVE (NEGATIVE); COLOR DK YELLOW (YELLOW); GLUCOSE NEGATIVE (NEGATIVE); KETONE NEGATIVE (NEGATIVE); LEUKOCYTE ESTERASE TRACE (NEGATIVE); NITRITE NEGATIVE (NEGATIVE); PROTEIN TRACE mg/dL (NEGATIVE); RED CELLS - URINE OCC /hpf (0-5); UROBILINOGEN NORMAL (NORMAL)
[2017-02-28 18:23] LABS: YEAST <1+ /hpf (NONE SEEN)
--- NOTE | 2017-02-28 19:10 | NUR ---
ALERT/AWAKE RATES PAIN LEVEL OF BACK/NECK AT 8 ON NUMBER SCALE. REQUESTED PAIN MEDICATION. HAS CALL LIGHT AND BEDSIDE TABLE WITH PERSONAL ITEMS IN REACH.
[2017-02-28 20:00] VITALS: BP 135/91
--- NOTE | 2017-02-28 20:30 | NUR ---
ADMIN BUPRENEX 0.1MG IV PER REQUEST FOR C/O NECK/BACK PAIN LEVEL 10 ON NUMBER SCALE. ADMIN SCHED MEDS. NO OTHER NEEDS VOICED.
[2017-03-01] VITALS: BP 138/98
--- NOTE | 2017-03-01 00:30 | NUR ---
RESTING QUIETLY WITH EYES CLOSED. RR 18 EVEN U/L. NO SIGNS OF DISCOMFORT. BED IS LOW WITH SR UP X2. CL IN REACH.
[2017-03-01 04:00] VITALS: BP 156/87
--- NOTE | 2017-03-01 05:30 | NUR ---
ADMIN BUPRENEX 0.1 MG IV FOR C/O NECK/BACK PAIN LEVEL 10. NO OTHER NEEDS VOICED.
[2017-03-01 06:12] LABS: CALC OSMOLALITY 256 mosm/kg (275-300); CHLORIDE - SERUM 89 mmol/L (98-107); CREATININE - SERUM 0.6 mg/dL (0.6-1.3); GLUCOSE 90 mg/dL (74-106); PHOSPHOROUS 4.3 mg/dL (2.5-4.9); POTASSIUM - SERUM 5.5 mmol/L (3.5-5.1); SODIUM 128 mmol/L (136-145); UREA NITROGEN 12 mg/dL (7-18); eGFR NON AFRICAN AMERICAN > 90 mL/min (90-120)
--- NOTE | 2017-03-01 07:42 | NUR ---
AM ROUNDS- PT IN BED, DENIES ANY NEEDS AT THIS TIME. RESP EVEN AND UNLABORED, RT FA IV INFUSING NS AT KVO. BED LOW AND WHEELS LOCKED, BEDSIDE RAILS X2, CALL LIGHT IN REACH, NAD NOTED, WILL CONTINUE TO MONITOR.
--- NOTE | 2017-03-01 09:10 | NUR ---
AM MEDS GIVEN, PT IN BED. DENIES ANY NEEDS AT THIS TIME. CALL LIGHT IN REACH,NAD NOTED, WILL CONTINUE TO MONITOR.
[2017-03-01 09:17] VITALS: BP 118/79
[2017-03-01 12:01] VITALS: BP 133/78
--- NOTE | 2017-03-01 12:57 | NUR ---
GAVE 0.1MG OF BUPRENEX FOR PAIN LEVEL OF 9/10. PT IN BED, DENIES ANY OTHER NEEDS AT THIS TIME. AT BEDSIDE, NAD NOTED, WILL CONTINUE TO MONITOR.
--- NOTE | 2017-03-01 14:04 | NUR ---
SPOKE WITH DR LUDWIG IN REGARDS TO PATIENTS WALK TEST RESULTS. SHE WAS 51% ON ROOM AIR THEREFORE THE WALK PART OF THE TEST WAS DEFERRED. SHE WAS PLACED ON 4L OXYGEN THAT BROUGHT HER SATS UP TO 94% IN 2.5 MINUTES. SECONDARY TO THIS, HER DISCHARGE IS BEING HELD. PAGE HAS BEEN PLACED TO ELI WORRELL APN TO NOTIFY HER OF THIS. WILL ALSO NOTIFY THE PATIENT.
[2017-03-01 16:02] VITALS: BP 127/80
--- NOTE | 2017-03-01 17:00 | NUR ---
Patient Name: DARBY AGUDELO Encounter No: [id number] : 1960 Primary Insurance: MEDICARE A & B Anticipated DC Date: 03-01-2017 Planned Disposition: Home DCP follow-up note: CM RECEIVED ORDERS FOR NEBULIZER AND WALK TEST FOR PORTABLE OXYGEN. CM MET WITH PT IN ROOM TO DISCUSS ORDER, DISCHARGE NEEDS AND PLANNING. CM DISCUSSED AVAILABILITY OF HOME HEALTH, REHAB SERVICES AND MEDICAL EQUIPMENT. PT DENIES NEED OF HOME HEALTH, REPORTS HAVING NEBULIZER AND HOME / PORTABLE OXYGEN PROVIDED BY [facility] PATIENT. PT WOULD LIKE PORTABLE CONCENTRATOR; PT'S SPOUSE REPORTS INSURANCE WILL NOT PAY FOR THE PORTABLE CONCENTRATOR AND THAT THEY DO HAVE PORTABLE OXYGEN. PT'S SPOUSE TO TRANSPORT HOME AT DISCHARGE. IMPORTANT MESSAGE FROM MEDICARE PROVIDED AND EXPLAINED. Vaughn Paulino, CASE MANAGEMENT
[2017-03-01 20:00] VITALS: BP 128/78
[2017-03-02] VITALS: BP 126/85
[2017-03-02 05:21] LABS: CALCIUM 8.6 mg/dL (8.5-10.1); CHLORIDE - SERUM 87 mmol/L (98-107); CREATININE - SERUM 0.6 mg/dL (0.6-1.3); GLUCOSE 113 mg/dL (74-106); PHOSPHOROUS 4.4 mg/dL (2.5-4.9); SODIUM 128 mmol/L (136-145); eGFR NON AFRICAN AMERICAN > 90 mL/min (90-120)
[2017-03-02 05:39] LABS: CALC OSMOLALITY 255 mosm/kg (275-300); UREA NITROGEN 8 mg/dL (7-18)
[2017-03-02 05:40] LABS: CARBON DIOXIDE 40.4 mmol/L (21.0-32.0)
--- NOTE | 2017-03-02 05:41 | NUR ---
CRITICAL LAB TOOK FROM BROOKE SORIANO AND REPORTED TO PTS NURSE JACOB VUONG.
--- NOTE | 2017-03-02 06:39 | NUR ---
ADMIN ZOFRAN IV PER REQUEST FOR NAUSEA.
--- NOTE | 2017-03-02 07:10 | NUR ---
RECEIVED REPORT. ASSUMED CARE OF PATIENT. RESTING IN BED WITH EYES OPEN RECEIVING NEBULIZER TX. PATIENT QUESTIONING WHEN SHE CAN HAVE HER PAIN MEDICATION HER BACK IS HURING HER. PAIN MED NOT AVAILABLE UNTIL 0750. CALL LIGHT WITHIN REACH. NO DISTRESS.
[2017-03-02 08:00] VITALS: BP 148/98
--- NOTE | 2017-03-02 08:50 | NUR ---
7096 PAGED PLACED TO FOR ORDERS REGARDING PREP PATIENT HAS ALLERGY TO IODINE. AWAITING CALL BACK.
--- NOTE | 2017-03-02 09:54 | NUR ---
RECEIVED ORDER FROM TO DO 13 HOUR PREP AND DO CTA OF CHEST TOMORROW
--- NOTE | 2017-03-02 11:33 | NUR ---
EGG CRATE MATTRESS APPLIED TO PATIENT BED AT THIS TIME PATIENT COMPLAINING OF HOW HER BAD HURTS. HOPEFULLY THIS WILL HELP. PATIENT RECEPTIVE TO EGGCRATE BEING APPLIED TO MATTRESS.
[2017-03-02 12:00] VITALS: BP 142/96
--- NOTE | 2017-03-02 14:06 | NUR ---
MEDICATED FOR PAIN AT THIS TIME. NO DISTRESS.
--- NOTE | 2017-03-02 15:20 | NUR ---
20 GAUGE IV PLACED TO RIGHT HAND X 1 STICK. GOOD BLOOD RETURN, EASY FLUSH. TOLERATED IV PLACEMENT WELL. 20 GAUGE PLACED FOR CTA OF CHEST IN AM. IV TAPED, DATED AND SECURED. NO DISTRESS. CONTINUES WITH PATENT 22 GAUGE IN RIGHT FOREARM.
[2017-03-02 16:42] VITALS: BP 151/93
[2017-03-02 19:00] VITALS: BP 155/105
--- NOTE | 2017-03-02 19:33 | NUR ---
RESUMED CARE OF PT, LYING IN BED RESPIRATIONS EVEN AND UNLABORED ON 2LPM VIA NC. 97 SR ON TELEEMTRY. RIGHT HAND AND FOREARM SALINE LOCKED. REQUESTS PAIN MEDS SOON AVAILABLE. CALL LIGHT IN REACH. WILL CONTINUE TO MONITOR. SEE NURSE ASSESSMENT.
--- NOTE | 2017-03-02 22:41 | NUR ---
NIGHT MEDS GIVEN, PLAN OF CARE DISCUSSED. WILL CONTINUE TO MONITOR.
[2017-03-03] VITALS: BP 132/78
--- NOTE | 2017-03-03 02:09 | NUR ---
BUPRENEX 0.1MG IVP FOR BACK PAIN 10:10. WILL CONTINUE TO MONITOR.
[2017-03-03 04:00] VITALS: BP 140/84
[2017-03-03 04:46] LABS: CALC OSMOLALITY 259 mosm/kg (275-300); CALCIUM 8.9 mg/dL (8.5-10.1); CREATININE - SERUM 0.6 mg/dL (0.6-1.3); GLUCOSE 148 mg/dL (74-106); POTASSIUM - SERUM 4.1 mmol/L (3.5-5.1); SODIUM 129 mmol/L (136-145); UREA NITROGEN 7 mg/dL (7-18); eGFR NON AFRICAN AMERICAN > 90 mL/min (90-120)
[2017-03-03 04:51] LABS: CARBON DIOXIDE 44.6 mmol/L (21.0-32.0); CHLORIDE - SERUM 84 mmol/L (98-107)
--- NOTE | 2017-03-03 06:16 | NUR ---
NO CHANGES FROM PREVIOUS ASSESSMENT, CALL LIGHT IN REACH.
[2017-03-03 08:00] VITALS: BP 149/97
[2017-03-03 12:04] VITALS: BP 143/94
--- NOTE | 2017-03-03 13:00 | NUR ---
ALERT AND ORIENTED X4. RESTING IN BED. FAMILY AT BEDSIDE. COMPLAINS OF UNRELIEVED PAIN FROM BUPERNEX INJ. REQUESTING HOME NORCO DOSE TO BE RESTART ALONG WITH VALIUM. INFORM OF PATIENT'S REQUEST. CONTINUE PAIN MANAGEMENT. STOOL SOFTENERS ORDERED PER FOR CONSTIPATION. CONTINUE PLAN OF CARE. BED LOCKED AND LOW. CALL LIGHT IN REACH. TWO SIDERAILS UP. SINUS RHTHYM 84bpm ON TELEMETRY.
[2017-03-03 16:00] VITALS: BP 144/95
--- NOTE | 2017-03-03 18:05 | NUR ---
SITTING UP IN BED. STILL NO BOWEL MOVEMENT. ALERT AND ORIENTED X4. DENIES ANY NEEDS AT THIS TIME. BED LOCKED AND LOW. CALL LIGHT IN REACH. TWO SIDERAILS UP.
--- NOTE | 2017-03-03 19:30 | NUR ---
RESUMED CARE OF PT, LYING IN BED RESPIRATIONS EVEN AND UNLABORED ON 2LPM VIA NC. [address] ST ON TELEMETRY. RIGHT HAND AND RIGHT FOREARM SALINE LOCKED. REQUESTS PAIN PILL FOR PAIN. CALL LIGHT IN REACH. WILL CONTINUE TO MONITOR. SEE NURSE ASSESSMENT.
--- NOTE | 2017-03-03 19:48 | NUR ---
NORCO 5 GIVEN FOR BACK PAIN 10:10
[2017-03-03 20:00] VITALS: BP 149/99
--- NOTE | 2017-03-03 22:55 | NUR ---
BUPRENEX 0.1MG FOR BACK PAIN 10:10. CALL LIGHT IN REACH. WILL CONTINUE TO MONITOR.
[2017-03-04] VITALS: BP 164/103
[2017-03-04 04:00] VITALS: BP 161/108
[2017-03-04 05:13] LABS: CALCIUM 9.5 mg/dL (8.5-10.1); CARBON DIOXIDE 38.9 mmol/L (21.0-32.0); CHLORIDE - SERUM 89 mmol/L (98-107); CREATININE - SERUM 0.6 mg/dL (0.6-1.3); GLUCOSE 126 mg/dL (74-106); SODIUM 133 mmol/L (136-145); eGFR NON AFRICAN AMERICAN > 90 mL/min (90-120)
[2017-03-04 05:17] LABS: CALC OSMOLALITY 266 mosm/kg (275-300); POTASSIUM - SERUM 3.3 mmol/L (3.5-5.1); UREA NITROGEN 9 mg/dL (7-18)
--- NOTE | 2017-03-04 07:30 | NUR ---
ASSESSMENT COMPLETED. O2 AT 3 L/M PER NC. SL TO RIGHT HAND AND RIGHT FA/ BOTH ARE PAENT. UP AB IVELISSE. TELEMERTY SHOWS ST. MILD EDEMA TO LOWE LEGS. WILL MONITOR
[2017-03-04 08:15] LABS: APPEARANCE HAZY (CLEAR); BILIRUBIN NEGATIVE (NEGATIVE); COLOR STRAW (YELLOW); GLUCOSE NEGATIVE (NEGATIVE); KETONE NEGATIVE (NEGATIVE); LEUKOCYTE ESTERASE NEGATIVE (NEGATIVE); NITRITE NEGATIVE (NEGATIVE); PROTEIN NEGATIVE (NEGATIVE); SPECIFIC GRAVITY 1.005 (1.005-1.020); UROBILINOGEN NORMAL (NORMAL)
[2017-03-04 08:22] LABS: POTASSIUM - URINE 11.6 MMOL/L (12.0-62.0)
--- NOTE | 2017-03-04 10:04 | NUR ---
WHILE MAKING ROUNDS, PATIENT IS IN SHOWER AT THIS TIME. DENIES ANY NEEDS AT THIS TIME.
[2017-03-04 10:34] VITALS: BP 153/95
[2017-03-04 12:00] VITALS: BP 137/98
[2017-03-04 16:34] VITALS: BP 145/99
--- NOTE | 2017-03-04 18:34 | NUR ---
UP IN BEDSIDE CHAIR. FAMILY AT BEDSIDE. DENIES ANY PAIN AT PRESENT TIME. WILL MONITOR
[2017-03-04 19:00] VITALS: BP 145/95
--- NOTE | 2017-03-04 19:30 | NUR ---
RECEIVED REPRT, WILL ASSUME CARE OF PT, PT COMPLAINS OF PAIN, CHECK ORDER NORCO WILL BE DUE @ 2024, WILL GIVE THEN, BED IS LOW, SRX2, CALL LIGHT IN REACH, WILL CONTINUE PLAN OF CARE
--- NOTE | 2017-03-04 23:02 | NUR ---
GAVE BUPRENEX 0.1MG FOR PAIN, COMPLAINS OF NECK AND BACK PAIN
[2017-03-05] VITALS: BP 142/99
--- NOTE | 2017-03-05 00:09 | NUR ---
HOSE STRIPPER AT BED SIDE TO OBTAIN VITALS.
--- NOTE | 2017-03-05 03:04 | NUR ---
PT RESTING IN BED WITH NO DISTRESS. RESPS EVEN/NONLABORED. MONITOR AND CPOC. CALL LIGHT IN REACH. BED LOW.
[2017-03-05 04:00] VITALS: BP 145/94
[2017-03-05 06:05] LABS: BASOPHILS 0.1 % (0-2); EOSINOPHILS 0.2 % (0-7); HEMATOCRIT 43.7 % (36.0-48.0); HEMOGLOBIN 16.1 g/dL (12-16); IMMATURE GRANULOCYTES 0.5 % (0-5); LYMPHOCYTES 17.6 % (15-50); MCH 32.5 pg (26.0-34.0); MCHC 36.8 g/dL (31.0-37.0); MCV 88.1 fL (80.0-100.0); MEAN PLATELET VOLUME 9.7 fL (7.4-10.4); MONOCYTES 8.6 % (2-11); RBC 4.96 10x6/uL (4.00-5.40); RDW 16.4 % (11.5-14.5); WBC 11.5 10x3/uL (4.8-10.8)
[2017-03-05 06:08] LABS: CALC OSMOLALITY 264 mosm/kg (275-300); CALCIUM 9.1 mg/dL (8.5-10.1); CARBON DIOXIDE 37.7 mmol/L (21.0-32.0); CHLORIDE - SERUM 92 mmol/L (98-107); CREATININE - SERUM 0.6 mg/dL (0.6-1.3); GLUCOSE 95 mg/dL (74-106); PLATELET COUNT 123 10x3/uL (130-400); POTASSIUM - SERUM 3.1 mmol/L (3.5-5.1); SODIUM 133 mmol/L (136-145); UREA NITROGEN 9 mg/dL (7-18); eGFR NON AFRICAN AMERICAN > 90 mL/min (90-120)
--- NOTE | 2017-03-05 07:00 | NUR ---
RECEIVED REPORT. ASSUMED CARE OF PATIENT. RECEIVING NEBULIZER TX AT THIS TIME. NO DISTRESS. COMPLAINS OF PAIN TO BACK, CHRONIC. RESP EVEN AND UNLABORED. CALL LIGHT WITHIN REACH.
[2017-03-05 08:23] VITALS: BP 146/103
--- NOTE | 2017-03-05 08:34 | NUR ---
MEDICATED FOR PAIN AT THIS TIME. NO DISTRESS. SITTING TO CHAIR AT BEDSIDE.
--- NOTE | 2017-03-05 11:03 | NUR ---
PAGEiAda BENITEZ, SHOOTING GALLERY OPERATOR FOR ORDERS TO CONTINUE BUPRENEX IT HAS FALLEN OFF OF EMAR. AWAITING FOR CALL BACK.
--- NOTE | 2017-03-05 11:08 | NUR ---
SPOKE WITH ELI, ORDERS RECEIVED - DO NOT REORDER BUPRENEX, CONTINUE WITH JAQUELINE. THANKED ELI FOR CALL BACK.
--- NOTE | 2017-03-05 11:41 | NUR ---
PATIENT CUSSING AT BIOLOGIST STATING SHE IS GOING TO SLAP THE SHIT OUT OF SOMEONE BECAUSE SHE WANTS HER PAIN SHOT. THIS RN TRAUMA RECEIVED SPECIFIC ORDERS NOT TO RESTART THE BUPRENEX AND CONTINUE WITH NORCO ONLY.
[2017-03-05 12:13] VITALS: BP 126/79
[2017-03-05] MEDS ORDERED: K-DUR20 MEQ PO (14:16)
[2017-03-05] MEDS ORDERED: BENZONATATE200 MG PO (14:17)
[2017-03-05] MEDS ORDERED: MUCINEX DM ER1 EAC1 PO (14:17)
[2017-03-05] MEDS ORDERED: PREDNISONE10 MG PO (14:18)
--- NOTE | 2017-03-05 14:20 | NUR ---
Nutrition Follow Up: Pt stated that her appetite is improving. Pt is eating 38% meal avg on a renal diet. Wt loss noted. +BM 03/04/17. Labs reviewed. Meds noted including Lasix, Solu-Medrol. Rec continue current diet. RD following.
--- NOTE | 2017-03-05 16:36 | NUR ---
Patient Name: DARBY AGUDELO Encounter No: [id number] : 1960 Primary Insurance: MEDICARE A & B Anticipated DC Date: 03-05-2017 Planned Disposition: Home DCP follow-up note: CM RECEIVED DISCHARGE ORDER, MET WITH PT IN ROOM TO DISCUSS DISCHARGE NEEDS AND PLANNING. CM DISCUSSED AVAILABILITY OF HOME HEALTH, REHAB SERVICES AND MEDICAL EQUIPMENT. PT DENIES DISCHARGE NEEDS. SPOUSE TO TRANSPORT HOME AT DISCHARGE AFTER HE GETS OFF FROM WORK TONIGHT. PT HAD MULTIPLE COMPLAINTS REGARDING NURSING, RESPIRATORY THERAPIST, FACILITIES AND MEDICATIONS. CM OFFERED TO NOTIFY B[employer]BALL GLOVE STUFFER AND HAVE THESE ADDRESSED. PT REPORTS SHE HAS ALREADY TALKED TO MANAGEMENT AND REPORTED THAT SHE NOR HER WILL EVER BE BACK TO THIS HOSPITAL AFTER THEY LEAVE TONIGHT. IMPORTANT MESSAGE FROM [employer] PROVIDED AND EXPLAINED. Vaughn Paulino, CASE MANAGEMENT
--- NOTE | 2017-03-05 17:37 | NUR ---
1615 22 GAUGE IV REMOVED FROM RIGHT FOREARM. NO BLEEDING. CATHETER TIP INTACT. 2X2 GAUZE APPLIED AND SECURED WITH TAPE. TOLERATED IV REMOVAL WELL. IV TO RIGHT HAND, PATIENT REPORTS THAT IT FELL OUT WHILE SHE WAS IN THE RESTROOM. NO BLEEDING FROM SITE. 1620 DISCHARGE INSTRUCTIONS PROVIDED TO PATIENT. VERBALIZED UNDERSTANDING OF ALL INSTRUCTIONS PROVIDED. 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 ADVISED PATIENT SHE SHOULD GO AND PICK HER MEDICATION UP IF POSSIBLE. 1625 PATIENT LEFT UNIT VIA WHEELCHAIR WITH ALL PERSONAL BELONGINGS. PATIENT IN NO DISTRESS UPON LEAVING UNIT. PATIENT DISCHARGED TO HOME.
== END 2017-03-05 16:25 | disposition home or self-care (01) | DRG 643 ==
LOC: D.ER 12:39 → D.ICU 15:46 → D.M2 15:46
PROVIDERS: Emergency Medicine; Internal Medicine Nephrology; ADMIT Family Medicine
PROC: 0T9B70Z Drainage of Bladder with Drainage Device, Via Natural or Artificial Opening (ICD-10-PCS; principal; 2017-02-23)
DX: E22.2 Syndrome of inappropriate secretion of antidiuretic hormone (principal); J96.01 Acute respiratory failure with hypoxia; J18.9 Pneumonia, unspecified organism; I50.31 Acute diastolic (congestive) heart failure; J44.1 Chronic obstructive pulmonary disease with (acute) exacerbation; F17.203 Nicotine dependence unspecified, with withdrawal; J44.0 Chronic obstructive pulmonary disease with (acute) lower respiratory infection; B37.49 Other urogenital candidiasis; E87.3 Alkalosis; G72.81 Critical illness myopathy; E87.5 Hyperkalemia; I27.2 Other secondary pulmonary hypertension; F41.9 Anxiety disorder, unspecified; R33.9 Retention of urine, unspecified; E83.42 Hypomagnesemia; R04.0 Epistaxis; I07.1 Rheumatic tricuspid insufficiency; K58.9 Irritable bowel syndrome, unspecified; G89.29 Other chronic pain; M54.9 Dorsalgia, unspecified; F12.90 Cannabis use, unspecified, uncomplicated